=== PATIENT | female | born 2000 | race Caucasian/White ===

== ENCOUNTER 2024-06-28 22:20 | Emergency (ER) | payer BC ==
--- OUTSIDE RECORDS SUMMARY | 2024-06-28 22:23 | XMS REPORT | Continuity of Care Document ---
Author Name Unknown Address [address] [facility] [place]. [address] [place] [address] [facility] thconnect Address [address] [facility] [place] [place] [address] Care Team Providers Care Fisher Troll Line Name Role Phone Unavailable Unavailable Unavailable Encounters Start Date/Time End Date/Time Encounter Type Admission Type Attending Clinicians Care Facility Care Department Encounter ID Source 2023-12-21 15:29:38 2023-12-21 15:29:38 Outpatient [facility] [id number] Domingo Garcia Results Test Description Test Time Test Comments Results Result Co mments Source CULTURE, URINE 2023-12-23 10:27:05 SPECIMEN NUMBER: [id number] CULTURE, URINE SPECIMEN NUMBER: [id number] SPECIMEN COMMENT: URINE SOURCE: URINE REPORT STATUS: FINAL FINAL REPORT: 12/23/2023 >100,000 CFU/ML UROGENITAL SVETLANA PRESENT NO COMMON PATHOGENS
[2024-06-28 23:31] LABS: SARS-CoV-2 Antigen CONTROL BLUE LINE VIS/BG OK; SARS-CoV-2 Antigen Rapid Res Negative (Negative)
--- NOTE | 2024-06-28 23:37 | ER ---
Nurse's Notes [facility] Name: Echo Ratliff Age: 24 yrs Sex: Female : 2000 Arrival Date: 06/28/2024 Time: 22:20 Bed 11 Private MD: Diagnosis: Acute upper respiratory infection, unspecified Presentation: 06/28 22:44 Chief complaint: Patient states: hurts to breath, nose clogged, congestion, cough, and vc1 fever. Coronavirus screen: Client denies travel out of the [place] in the last 14 days. congestion, cough unrelated to allergies, diarrhea, nausea, runny nose, shortness of breath, sore throat, Client presents with at least one sign or symptom that may indicate coronavirus-19. Ebola Screen: Patient negative for fever greater than or equal to 101.5 degrees Fahrenheit, and additional compatible Ebola Virus Disease symptoms Patient denies exposure to infectious person. Patient denies travel to an Ebola-affected area in the 21 days before illness onset. No symptoms or risks identified at this time. Initial Sepsis Screen: Does the patient meet any 2 criteria? No. Patient's initial sepsis screen is negative. Does the patient have a suspected source of infection? No. Patient's initial sepsis screen is negative. Risk Assessment: Do you want to hurt yourself or someone else? Patient reports no desire to harm self or others. Onset of symptoms was June 25, 2024. Activity prior to arrival: None. Mechanism of Injury: No Mechanism of Injury. Transition of care: patient was not received from another setting of care. 22:44 Method Of Arrival: Ambulatory vc1 22:44 Acuity: JANUARY 4 vc1 Triage Assessment: 22:49 General: Appears in no apparent distress. ill, obese, well developed, Behavior is calm, vc1 cooperative, appropriate for age. Pain: Complains of pain in throat. EENT: Nares with drainage noted Reports nasal congestion pain when swallowing. Neuro: Level of Consciousness is awake, alert, obeys commands, Oriented to person, place, time, situation, Appropriate for age. Cardiovascular: No deficits noted. Respiratory: Airway is patent Respiratory effort is even, unlabored, Respiratory pattern is regular, symmetrical, Breath sounds are clear bilaterally. GI: Abdomen is round non-distended. : No deficits noted. No signs and/or symptoms were reported regarding the genitourinary system. Derm: Skin is intact, is healthy with good turgor, Skin is dry, Skin is normal, Skin temperature is warm. Musculoskeletal: No deficits noted. No signs and/or symptoms reported regarding the musculoskeletal system. 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 - Infectious Disease History:: Denies. - Social history:: Smoking status: Reported history of juuling and/or vaping. Screenin:35 [facility] ED Fall Risk Assessment (Adult) History of falling in the last 3 months, vc1 including since admission No falls in past 3 months (0 pts) Confusion or Disorientation No (0 pts) Intoxicated or Sedated No (0 pts) Impaired Gait No (0 pts) Mobility Assist Device Used No (0 pt) Altered Elimination No (0 pt) Score/Fall Risk Level 0 - 2 = Low Risk Oriented to surroundings, Maintained a safe environment, Educated pt \T\ family on fall prevention, incl call for assistance when getting out of bed. Abuse screen: Denies threats or abuse. Nutritional screening: No deficits noted. Tuberculosis screening: No symptoms or risk factors identified. Assessment: 06/29 00:01 Reassessment: Patient appears in no apparent distress at this time. No changes from vc1 previously documented assessment. Patient and/or family updated on plan of care and expected duration. Pain level reassessed. Patient is alert, oriented x 3, equal unlabored respirations, skin warm/dry/pink. Cardiovascular: Heart tones S1 S2. Cardiovascular: Reports nausea, shortness of breath. Cardiovascular: Capillary refill < 3 seconds Patient's skin is warm and dry. Respiratory: Reports shortness of breath cough that is. Respiratory: Breath sounds are clear bilaterally. Respiratory: Airway is patent Respiratory effort is even, unlabored, Respiratory pattern is regular, symmetrical. Vital Signs: 06/28 22:50 BP 133 / 85; Pulse 92; Resp 20; Temp 97.5; Pulse Ox 96% ; Weight 184.16 kg; Height 5 vc1 ft. 11 in. ; 06/29 00:01 BP 132 / 84; Pulse 90; Resp 18; Pulse Ox 97% ; vc1 06/28 22:50 Body Mass Index 56.62 (184.16 kg, 180.34 cm) vc1 ED Course: 06/28 22:21 Patient arrived in ED. jj6 22:22 Jazlyn Lozano FNP-C is [facility]. kb 22:22 Parvez Rios MD is Attending Physician. kb 22:47 Triage completed. vc1 22:49 Arm band placed on left wrist. vc1 22:57 Flu Sent. vc1 22:57 Strep Sent. vc1 22:57 SARS-COV-2 Antigen Rapid Sent. vc1 23:35 Patient has correct armband on for positive identification. Bed in low position. vc1 23:54 No provider procedures requiring assistance completed. Patient did not have IV access vc1 during this emergency room visit. 06/29 00:01 Provided Education on: treat the symptoms. vc1 Administered Medications: No medications were administered Medication: 06/28 23:35 VIS not applicable for this client. vc1 Outcome: 23:37 Discharge ordered by . kb 23:54 Discharged to home ambulatory, with significant other, vc1 23:54 Condition: good 23:54 Discharge instructions given to patient, Instructed on discharge instructions, follow up and referral plans. Demonstrated understanding of instructions, follow-up care, 06/29 00:03 Patient left the ED. vc1 Signatures: Jazlyn Lozano FNP-C FNP-Ckb Jeffries, Jennifer jj6 Jeannie Murry, RN RN vc1
--- NOTE | 2024-06-28 23:37 | EDPHYS ---
Physician Documentation [facility] Name: Echo Ratliff Age: 24 yrs Sex: Female : 2000 Arrival Date: 06/28/2024 Time: 22:20 Bed 11 Private MD: ED Physician Parvez Rios HPI: 06/28 23:34 This 24 yrs old Female presents to ER via Ambulatory with complaints of Cough, kb Congestion, Shortness Of Breath. 23:34 Pt is a 24 year old female who presents for cough, congestion and fever that started 3 kb days ago. Reports nausea and diarrhea yesterday, but none today. Denies vomiting. 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 - Infectious Disease History:: Denies. - Social history:: Smoking status: Reported history of juuling and/or vaping. ROS: 23:34 Constitutional: As per HPI kb Exam: 23:34 Constitutional: This is a well developed, well nourished patient who is awake, alert, kb and in no acute distress. Head/Face: Normocephalic, atraumatic. ENT: Moist Mucous membranes Cardiovascular: Regular rate Respiratory: Respirations even and unlabored. No increased work of breathing. Talking in full sentences Abdomen/GI: Soft, non-tender. No distention Skin: Warm, dry with normal turgor. Normal color. MS/ Extremity: Pulses equal, no cyanosis. Neurovascular intact. Full, normal range of motion. Neuro: Awake and alert, GCS 15, oriented to person, place, time, and situation. Moves all extremities. Normal gait. Vital Signs: 22:50 BP 133 / 85; Pulse 92; Resp 20; Temp 97.5; Pulse Ox 96% ; Weight 184.16 kg; Height 5 vc1 ft. 11 in. ; 06/29 00:01 BP 132 / 84; Pulse 90; Resp 18; Pulse Ox 97% ; vc1 06/28 22:50 Body Mass Index 56.62 (184.16 kg, 180.34 cm) vc1 MDM: 06/28 22:22 Patient medically screened. kb 23:34 Differential Diagnosis: Bronchitis Influenza Upper Respiratory Infection Other covid. kb Data reviewed: vital signs, nurses notes. Historians other than the Patient: Spouse/Significant Other: sig other. Counseling: I had a detailed discussion with the patient and/or guardian regarding the historical points, exam findings, and any diagnostic results supporting the discharge/admit diagnosis, lab results, the need for outpatient follow up, a family practitioner, to return to the emergency department if symptoms worsen or persist or if there are any questions or concerns that arise at home. 23:35 I considered the following discharge prescriptions or medication management in the emergency department I discussed and recommended Over The Counter medications, Antibiotics: At this time antibiotics are not recommended. 06/28 22:48 Order name: SARS-COV-2 Antigen Rapid; Complete Time: 23:32 06/28 22:48 Order name: Strep; Complete Time: 23:32 06/28 22:48 Order name: Flu; Complete Time: 23:32 06/28 23:33 Order name: Throat Culture EDMS Administered Medications: No medications were administered Disposition: 06/29 00:34 Co-signature as Attending Physician, Parvez Rios MD I agree with the assessment sp4 and plan of care. I reviewed the patient's care provided by the Advanced Practice Provider and agree with the diagnosis and treatment plan. Disposition Summary: 06/28/24 23:37 Discharge Ordered Notes: Location: Home Condition: Stable Diagnosis - Acute upper respiratory infection, unspecified kb Followup: kb - With: Emergency Department - When: As needed - Reason: Worsening of condition Followup: kb - With: Private Physician - When: 2 - 3 days - Reason: Recheck today's complaints, Continuance of care, Re-evaluation by your physician Discharge Instructions: - Discharge Summary Sheet kb - Upper Respiratory Infection, Adult, [id number] kb - Viral Respiratory Infection, Ayrz-Vl-[id number] kb Forms: - Medication Reconciliation Form kb - Antibiotic Education kb - Prescription Opioid Use kb - Patient Portal Instructions kb - Leadership Thank You Letter kb Signatures: Dispatcher [employer] EDJazlyn Esqueda FNP-C FNP-Ckb Calcote, Jeannie, RN RN vc1 Parvez Rios MD MD sp4 Corrections: (The following items were deleted from the chart) 06/28 22:48 22:48 SARS-COV-2 Antigen Rapid+I.LAB.BRZ ordered. EDMS EDMS 22:48 22:48 Group A Streptococcus Rapid Sc+BA.LAB.BRZ ordered. EDMS EDMS 22:48 22:48 Influenza Screen (A \T\ B)+BA.LAB.BRZ ordered. EDMS EDMS
[2024-06-29 00:28] VITALS: TEMP 97.5
[2024-06-29 00:29] VITALS: BP 132/84; O2SAT 97
== END 2024-06-29 00:03 | disposition home or self-care (01) ==
LOC: ER 22:20
DX: J06.9 Acute upper respiratory infection, unspecified (principal); Z11.52 Encounter for screening for COVID-19; I10 Essential (primary) hypertension
CPT/HCPCS: 36415; 87070; 87081; 87804; 87811; 99283

== ENCOUNTER 2024-09-27 21:35 | Emergency (ER) | payer BC ==
--- OUTSIDE RECORDS SUMMARY | 2024-09-27 21:38 | XMS REPORT | Continuity of Care Document ---
Author Name Unknown Address [address] [facility] [address] [place] [id number] [facility] thconnect Address [address] [facility] [address] [place] [address] Care Team Providers Care Finish Saw Operator Name Role Phone Unavailable Unavailable Unavailable Encounters Start Date/Time End Date/Time Encounter Type Admission Type Attending Clinicians Care Facility Care Department Encounter ID Source 2023-12-21 15:29:38 2023-12-21 15:29:38 Outpatient [facility] [id number] Domingo Garcia Results Test Description Test Time Test Comments Results Result Co mments Source CULTURE, URINE 2023-12-23 10:27:05 SPECIMEN NUMBER: [id number] CULTURE, URINE SPECIMEN NUMBER: [id number] SPECIMEN COMMENT: URINE SOURCE: URINE REPORT STATUS: FINAL FINAL REPORT: 12/23/2023 >100,000 CFU/ML UROGENITAL SVETLANA PRESENT NO COMMON PATHOGENS
[2024-09-27] MEDS ORDERED: ONDANSETRON 4 MG (ODT) TAB ONE (22:02)
[2024-09-27 22:43] LABS: Specific Gravity 1.025 (1.005-1.030)
[2024-09-27 22:44] LABS: Specific Gravity 1.025 (1.005-1.030); Urine Bacteria None Seen /HPF (<20); Urine Bilirubin NEGATIVE (Negative); Urine Blood Negative (Negative); Urine Clarity Turbid (Clear); Urine Color Light-Yellow (Yellow); Urine Crystals Unidentified Few /HPF (None Seen); Urine Culture Reflex Order NOT NEEDED; Urine Glucose NEGATIVE (Negative); Urine Ketones NEGATIVE (Negative); Urine Micro Reflex YN NO BILL MICROSCOPIC; Urine Mucus Slight /HPF (None Seen); Urine Nitrite NEGATIVE (Negative); Urine Protein TRACE (Negative); Urine RBC <5 /HPF (None Seen); Urine Urobilinogen Normal (Normal); Urine WBC <5 /HPF (<5); Urine WBC Clump Rare /HPF (None Seen); Urine Yeast (Budding) Trace /HPF (None Seen); Urine pH 5.5 (5.0-7.0)
--- NOTE | 2024-09-27 22:53 | EDPHYS ---
Physician Documentation [facility] Name: Echo Ratliff Age: 24 yrs Sex: Female : 2000 Arrival Date: 09/27/2024 Time: 21:35 Bed 17 Private MD: ED Physician Chivo Jacobs HPI: 09/27 21:57 This 24 yrs old Female presents to ER via Ambulatory with complaints of Urinary sb4 Problem, Nausea. 21:57 UTI symptoms x 3 days with associated lower abdominal cramping, fever, n/v. no flank sb4 pain. reports history of UTIs. 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 - Infectious Disease History:: Denies. - Social history:: Smoking status: Reported history of juuling and/or vaping. ROS: 21:58 Constitutional: Positive for fever, sb4 21:58 Abdomen/GI: Positive for nausea and vomiting, abdominal cramps, 21:58 : Positive for burning with urination, 21:58 All other systems are negative, 23:02 Back: Negative for injury and pain, sb4 Exam: 21:58 Head/Face: Normocephalic, atraumatic. Eyes: Extra-ocular motions intact. Periorbital sb4 areas with no swelling, redness, or edema. ENT: Mucous membranes moist. Respiratory: No increased work of breathing, no retractions or nasal flaring. Back: No spinal tenderness. No costovertebral tenderness. Full range of motion. Skin: Warm, dry with normal turgor. Normal color with no rashes, no lesions, and no evidence of cellulitis. 21:58 Constitutional: The patient appears in no acute distress, alert, awake, obese, Vital Signs: 21:47 BP 164 / 83; Pulse 84; Resp 16; Temp 97.1; Pulse Ox 99% on R/A; Weight 182.8 kg; Height iw 5 ft. 11 in. ; Pain 6/10; 22:30 BP 129 / 72; Pulse 97; Resp 17; Temp 98(O); Pulse Ox 99% on R/A; rg5 21:47 Body Mass Index 56.21 (182.80 kg, 180.34 cm) iw 21:47 Pain Scale: Adult iw Jovita Coma Score: 22:05 Eye Response: spontaneous(4). Motor Response: obeys commands(6). Verbal Response: rg5 oriented(5). Total: 15. MDM: 21:50 Medical Screening Exam initiated sb4 22:01 Differential diagnosis: UTI, , ovarian cyst. sb4 22:51 Data reviewed: vital signs, nurses notes, lab test result(s), and as a result, I will sb4 discharge patient. Counseling: I had a detailed discussion with the patient and/or guardian regarding the historical points, exam findings, and any diagnostic results supporting the discharge/admit diagnosis, lab results, to return to the emergency department if symptoms worsen or persist or if there are any questions or concerns that arise at home. 09/27 21:49 Order name: Test, Urine; Complete Time: 22:48 sb4 09/27 21:49 Order name: UAM; Complete Time: 22:48 sb4 09/27 21:56 Order name: Urine Culture sb4 Administered Medications: 22:00 Drug: Ondansetron PO 4 mg PO once Route: PO; rg5 22:44 Follow up: Response: No adverse reaction rg5 22:55 Drug: Fluconazole PO 100 mg PO once Route: PO; rg5 23:00 Follow up: Response: No adverse reaction rg5 Disposition: 23:31 Co-signature as Attending Physician, Chivo Jacobs MD I reviewed the patient's care rt provided by the Advanced Practice Provider and agree with the diagnosis and treatment plan. Disposition Summary: 09/27/24 22:52 Discharge Ordered Notes: Location: Home sb4 Problem: new sb4 Symptoms: are unchanged sb4 Condition: Stable sb4 Diagnosis - Other urogenital candidiasis sb4 Followup: sb4 - With: Emergency Department - When: As needed - Reason: Trouble breathing, Worsening of condition Discharge Instructions: - Discharge Summary Sheet sb4 - Vaginal Yeast Infection, Adult sb4 Forms: - Patient Portal Instructions sb4 - Leadership Thank You Letter sb4 Prescriptions: - Fluconazole 150 mg Oral tablet - take 1 tablet ORAL route once daily for 1 dose take 72 hours after first dose; sb4 1 tablet; Refills: 0, Product Selection Permitted - ondansetron 8 mg Oral Tablet,disintegrating - take 1 tablet ORAL route every 8 hours; 10 tablet; Refills: 0, Product sb4 Selection Permitted Signatures: Dispatcher [employer] Kym Alatorre, DAYA RN Tianna Jose PA-C PAOdilon sb4 Chivo Jacobs MD MD rt Jarrell Gonzalez RN RN rg5
--- NOTE | 2024-09-27 22:53 | ER ---
Nurse's Notes [facility] Name: Echo Ratliff Age: 24 yrs Sex: Female : 2000 Arrival Date: 09/27/2024 Time: 21:35 Bed 17 Private MD: Diagnosis: Other urogenital candidiasis Presentation: 09/27 21:47 Chief complaint: Patient states: lower abd cramping, fever, n/v, feels like a UTI, iw started 3 days ago. Coronavirus screen: At this time, the client does not indicate any symptoms associated with coronavirus-19. Ebola Screen: No symptoms or risks identified at this time. Initial Sepsis Screen: Does the patient meet any 2 criteria? No. Patient's initial sepsis screen is negative. Does the patient have a suspected source of infection? No. Patient's initial sepsis screen is negative. Risk Assessment: Do you want to hurt yourself or someone else? Patient reports no desire to harm self or others. Onset of symptoms was September 24, 2024. 21:47 Method Of Arrival: Ambulatory iw 21:47 Acuity: JANUARY 3 iw Triage Assessment: 22:30 General: Behavior is calm, cooperative. 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 - Infectious Disease History:: Denies. - Social history:: Smoking status: Reported history of juuling and/or vaping. Screenin:05 [facility] ED Fall Risk Assessment (Adult) History of falling in the last 3 months, rg5 including since admission No falls in past 3 months (0 pts) Confusion or Disorientation No (0 pts) Intoxicated or Sedated No (0 pts) Impaired Gait No (0 pts) Mobility Assist Device Used No (0 pt) Altered Elimination No (0 pt) Score/Fall Risk Level 0 - 2 = Low Risk Oriented to surroundings, Maintained a safe environment, Hourly rounding (assess needs \T\ fall precautionary measures) done. Abuse screen: Denies threats or abuse. Nutritional screening: No deficits noted. Tuberculosis screening: No symptoms or risk factors identified. Assessment: 22:05 General: Appears in no apparent distress. comfortable. Pain: Complains of pain in rg5 anterior aspect of right lateral abdomen Pain currently is 5 out of 10 on a pain scale. Quality of pain is described as dull. Neuro: Level of Consciousness is awake, alert, obeys commands, Oriented to person, place, time. Cardiovascular: Denies chest pain, Heart tones S1 S2 Rhythm is regular. Respiratory: Airway is patent Trachea midline Respiratory effort is even, unlabored, Respiratory pattern is regular, symmetrical. GI: Abdomen is round obese, Bowel sounds present X 4 quads. Abd is soft and non tender. : Reports burning with urination. EENT: No deficits noted. Derm: Skin is intact, Skin is dry, Skin is normal, Skin temperature is warm. Musculoskeletal: Circulation, motion, and sensation intact. Range of motion: intact in all extremities. 22:53 Reassessment: No changes from previously documented assessment. Patient and/or family rg5 updated on plan of care and expected duration. Pain level reassessed. Vital Signs: 21:47 BP 164 / 83; Pulse 84; Resp 16; Temp 97.1; Pulse Ox 99% on R/A; Weight 182.8 kg; Height iw 5 ft. 11 in. ; Pain 6/10; 22:30 BP 129 / 72; Pulse 97; Resp 17; Temp 98(O); Pulse Ox 99% on R/A; rg5 21:47 Body Mass Index 56.21 (182.80 kg, 180.34 cm) iw 21:47 Pain Scale: Adult iw Jovita Coma Score: 22:05 Eye Response: spontaneous(4). Motor Response: obeys commands(6). Verbal Response: rg5 oriented(5). Total: 15. ED Course: 21:39 Patient arrived in ED. ra3 21:42 Tianna Jenkins PA-C is PHCP. sb4 21:42 Chivo Jacobs MD is Attending Physician. sb4 21:48 Triage completed. iw 21:49 Arm band placed on. iw 21:54 Jarrell Gonzalez, DAYA is Primary Nurse. rg5 22:05 Patient has correct armband on for positive identification. Call light in reach. Side rg5 rails up X 1. 22:05 No provider procedures requiring assistance completed. rg5 22:53 Provided Education on: post er care. rg5 22:53 Patient did not have IV access during this emergency room visit. rg5 Administered Medications: 22:00 Drug: Ondansetron PO 4 mg PO once Route: PO; rg5 22:44 Follow up: Response: No adverse reaction rg5 22:55 Drug: Fluconazole PO 100 mg PO once Route: PO; rg5 23:00 Follow up: Response: No adverse reaction rg5 Medication: 22:05 VIS not applicable for this client. rg5 Outcome: 22:52 Discharge ordered by . sb4 23:01 Discharged to home ambulatory, rg5 23:01 Condition: stable 23:01 Discharge instructions given to patient, Instructed on discharge instructions, follow up and referral plans. Demonstrated understanding of instructions, follow-up care, medications, Prescriptions given X 2, 23:02 Patient left the ED. rg5 Signatures: Kym Burton, RN RN Tianna Jose, PA-C PA-C sb4 Cara Gasca ra3 Jarrell Gonzalez, RN RN rg5
[2024-09-27] MEDS ORDERED: FLUCONAZOLE 100 MG TAB ONE (22:56)
[2024-09-27 23:35] VITALS: O2SAT 99
[2024-09-27 23:39] VITALS: BP 129/72; TEMP 98
== END 2024-09-27 23:02 | disposition home or self-care (01) ==
LOC: ER 21:35
DX: B37.49 Other urogenital candidiasis (principal)
CPT/HCPCS: 87088; 81001; 87086; 81025; 99283; Q0162

== ENCOUNTER 2024-10-31 20:01 | Emergency (ER) | payer BC, SELFPAY ==
--- OUTSIDE RECORDS SUMMARY | 2024-10-31 20:04 | XMS REPORT | Continuity of Care Document ---
Author Name Unknown Address [address] [facility] [place]. 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 Role Phone Unavailable Unavailable Unavailable Encounters Start Date/Time End Date/Time Encounter Type Admission Type Attending Clinicians Care Facility Care Department Encounter ID Source 2023-12-21 15:29:38 2023-12-21 15:29:38 Outpatient [facility] [id number] Domingo Garcia Results Test Description Test Time Test Comments Results Result Co mments Source CULTURE, URINE 2023-12-23 10:27:05 SPECIMEN NUMBER: [id number] CULTURE, URINE SPECIMEN NUMBER: [id number] SPECIMEN COMMENT: URINE SOURCE: URINE REPORT STATUS: FINAL FINAL REPORT: 12/23/2023 >100,000 CFU/ML UROGENITAL SVETLANA PRESENT NO COMMON PATHOGENS
[2024-10-31] MEDS ORDERED: AMLODIPINE 10 MG TAB ONE (20:46)
[2024-10-31] MEDS ORDERED: ONDANSETRON 4 MG (ODT) TAB ONE (20:47)
[2024-10-31 21:04] LABS: SARS-CoV-2 Antigen CONTROL BLUE LINE VIS/BG OK; SARS-CoV-2 Antigen Rapid Res Negative (Negative)
--- NOTE | 2024-10-31 21:44 | EDPHYS ---
Physician Documentation [facility] Name: Echo Ratliff Age: 24 yrs Sex: Female : 2000 Arrival Date: 10/31/2024 Time: 20:01 Bed DX3 Private MD: ED Physician Loren Caballero HPI: 10/31 20:43 This 24 yrs old Female presents to ER via Ambulatory with complaints of sd2 Nausea/Vomiting, Dizziness, Weakness. 20:43 24 yo F presents with CC of flu-like symptoms for the past 24 hours. 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 She reports headache, body aches, nausea with intermittent vomiting and lightheadedness. However, reports she has POTS and the lightheadedness is not new for her especially as she has been off her amlodipine and thyroid medication for the past week due to insurance issues. . 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 - Infectious Disease History:: Denies. - Social history:: Smoking status: Reported history of juuling and/or vaping. Patient/guardian denies using alcohol, street drugs. ROS: 20:43 Constitutional: Negative for fever, chills, and weight loss, Eyes: Negative for injury, sd2 pain, redness, and discharge, Cardiovascular: Negative for chest pain, palpitations, and edema, Respiratory: Negative for shortness of breath, cough, wheezing. 20:43 MS/Extremity: Negative for injury and deformity, Skin: Negative for injury, rash, and discoloration, 20:43 Abdomen/GI: Positive for nausea, vomiting, Negative for abdominal pain, diarrhea, 20:43 Neuro: Positive for headache, Negative for numbness, tingling, Exam: 20:43 Constitutional: This is a well developed, well nourished patient who is awake, alert, sd2 and in no acute distress. Head/Face: Normocephalic, atraumatic. Eyes: EOMI, normal conjunctiva bilaterally Chest/axilla: Normal chest wall appearance and motion. Nontender with no deformity. Cardiovascular: Regular rate and rhythm with a normal S1 and S2. No gallops, murmurs, or rubs. 2+ distal pulses. Respiratory: Lungs have equal breath sounds bilaterally, clear to auscultation and percussion. No rales, rhonchi or wheezes noted. No increased work of breathing, no retractions or nasal flaring. Abdomen/GI: Soft, non-tender, with normal bowel sounds. No guarding or rebound. No evidence of tenderness throughout. Skin: Warm, dry with normal turgor. Normal color with no rashes, no lesions, and no evidence of cellulitis. MS/ Extremity: Pulses equal, no cyanosis. Neurovascular intact. Full, normal range of motion. Neuro: Awake and alert, GCS 15, oriented to person, place, time, and situation. Cranial nerves II-XII grossly intact. Motor strength 5/5 in all extremities. Sensory grossly intact. Normal gait. Psych: Awake, alert, with orientation to person, place and time. Behavior, mood, and affect are within normal limits. 20:58 ECG was reviewed by the Attending Physician. NSR, rate 85, no STEMI criteria sd2 Vital Signs: 20:29 BP 172 / 73; Pulse 87; Resp 17 S; Temp 97.4; Pulse Ox 99% on R/A; Weight 184.61 kg (R); lg3 Height 5 ft. 11 in. (R); 22:00 BP 135 / 72; Pulse 82; Resp 16; Temp 98.6; Pulse Ox 100% ; me1 20:29 Body Mass Index 56.76 (184.61 kg, 180.34 cm) lg3 MDM: 20:34 Medical Screening Exam initiated sd2 20:43 Differential diagnosis: viral URI, flu, PNA, ACS, dehydration among others. Data sd2 reviewed: vital signs, nurses notes, lab test result(s), EKG. I considered the following discharge prescriptions or medication management in the emergency department Medications were administered in the Emergency Department. See MAR. Care significantly affected by the following chronic conditions: Hypertension, POTS, hypothyroidism. 21:42 Counseling: I had a detailed discussion with the patient and/or guardian regarding the sd2 historical points, exam findings, and any diagnostic results supporting the discharge/admit diagnosis, lab results, the need for outpatient follow up, to return to the emergency department if symptoms worsen or persist or if there are any questions or concerns that arise at home. ED course: Swabs negative. EKG with no ischemic changes. Pt's symptoms consistent with viral illness. With recent exposure to flu, advised continued supportive care and risk for contagiousness. Given work note. Pt comfortable with plan for dc and outpatient follow up. Refill given for patient's amlodipine and thyroid medication. Verbalizes understanding of dc plan and strict return precautions. . 10/31 20:32 Order name: Strep; Complete Time: 21:16 kmf 10/31 20:32 Order name: Flu; Complete Time: 21:41 kmf 10/31 20:32 Order name: SARS RAPID; Complete Time: 21:16 kmf 10/31 21:13 Order name: Throat Culture EDMS 10/31 20:39 Order name: EKG - Nurse/Tech; Complete Time: 20:48 sd2 Administered Medications: 20:52 Drug: Ondansetron Oral Disintegrating Tablet Oral Disintegrating Tablet 4 mg PO once lg3 Route: PO; 22:11 Follow up: Response: No adverse reaction; Nausea is decreased me1 20:52 Drug: amLODIPine PO 10 mg PO once Route: PO; lg3 22:11 Follow up: Response: No adverse reaction; Blood pressure is lowered me1 Disposition Summary: 10/31/24 21:44 Discharge Ordered Notes: Location: Home sd2 Problem: new sd2 Symptoms: have improved sd2 Condition: Stable sd2 Diagnosis - Flulike illness sd2 - Exposure to influenza sd2 - Lightheadedness sd2 - Medication non-compliance sd2 - Need for medication refill sd2 Followup: sd2 - With: Private Physician - When: 2 - 3 days - Reason: Recheck today's complaints, Continuance of care, Re-evaluation by your physician Discharge Instructions: - Discharge Summary Sheet sd2 - Influenza, Adult sd2 - Form - Excuse from Work, School, or Physical Activity sd2 Forms: - Medication Reconciliation Form sd2 - Antibiotic Education sd2 - Prescription Opioid Use sd2 - Patient Portal Instructions sd2 - Leadership Thank You Letter sd2 Prescriptions: - 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
--- NOTE | 2024-10-31 21:44 | ER ---
Nurse's Notes [facility] Name: Echo Ratliff Age: 24 yrs Sex: Female : 2000 Arrival Date: 10/31/2024 Time: 20:01 Bed DX3 Private MD: Diagnosis: Flulike illness;Exposure to influenza;Lightheadedness;Medication non-compliance;Need for medication refill Presentation: 10/31 20:29 Chief complaint: Patient states: body aches, nausea, lightheaded, weakness, cold chills lg3 X24 hr. recent contact with Flu + person. Coronavirus screen: Client denies travel out of the [place] in the last 14 days. Client presents with at least one sign or symptom that may indicate coronavirus-19. Standard/surgical mask placed on the client. Ebola Screen: No symptoms or risks identified at this time. Initial Sepsis Screen: Does the patient meet any 2 criteria? No. Patient's initial sepsis screen is negative. Does the patient have a suspected source of infection? No. Patient's initial sepsis screen is negative. Risk Assessment: Do you want to hurt yourself or someone else? Patient reports no desire to harm self or others. Onset of symptoms was October 30, 2024. 20:29 Method Of Arrival: Ambulatory lg3 20:29 Acuity: JANUARY 4 lg3 Triage Assessment: 20:32 General: Appears in no apparent distress. comfortable, Behavior is calm, cooperative. lg3 Pain: Complains of pain in generalized body aches. EENT: No deficits noted. No signs and/or symptoms were reported regarding the EENT system. Neuro: No deficits noted. Baum Agitation-Sedation Scale (RASS): 0 - Alert and Calm Level of Consciousness is awake, alert, obeys commands, Oriented to person, place, time, situation, Reports dizziness, weakness. Cardiovascular: No deficits noted. Denies chest pain, shortness of breath, Capillary refill < 3 seconds Clubbing of nail beds is absent JVD is absent Patient's skin is warm and dry. Respiratory: No deficits noted. Airway is patent Respiratory effort is even, unlabored, Respiratory pattern is regular, symmetrical, Breath sounds are clear bilaterally. GI: No deficits noted. Abdomen is round non-distended, obese, Bowel sounds present X 4 quads. Abd is soft and non tender X 4 quads. Reports nausea. : No signs and/or symptoms were reported regarding the genitourinary system. Derm: No deficits noted. No signs and/or symptoms reported regarding the dermatologic system. Skin is intact, is healthy with good turgor, Skin is dry, Skin is normal, Skin temperature is warm. Musculoskeletal: No deficits noted. Circulation, motion, and sensation intact. Range of motion: intact in all extremities. 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 - Infectious Disease History:: Denies. - Social history:: Smoking status: Reported history of juuling and/or vaping. Patient/guardian denies using alcohol, street drugs. Screenin:36 [facility] ED Fall Risk Assessment (Adult) History of falling in the last 3 months, lg3 including since admission No falls in past 3 months (0 pts) Confusion or Disorientation No (0 pts) Intoxicated or Sedated No (0 pts) Impaired Gait No (0 pts) Mobility Assist Device Used No (0 pt) Altered Elimination No (0 pt) Score/Fall Risk Level 0 - 2 = Low Risk Oriented to surroundings, Maintained a safe environment, Educated pt \T\ family on fall prevention, incl call for assistance when getting out of bed, Assessed \T\ reinforced patient's understanding of fall precautions. Abuse screen: Denies threats or abuse. Denies injuries from another. Nutritional screening: No deficits noted. Tuberculosis screening: No symptoms or risk factors identified. Assessment: 20:36 General: see triage assessment. GI: No deficits noted. Abdomen is round non-distended, lg3 obese, Reports nausea. 22:08 General: Appears comfortable, obese, well groomed, well developed, Behavior is calm, me1 cooperative, appropriate for age, Reports body aches, nausea, lightheaded, weakness, cold chills X24 hr. recent contact with Flu + person. Pain: Complains of pain in head Pain does not radiate. Pain currently is 3 out of 10 on a pain scale. Quality of pain is described as aching, Pain began 1 day ago. Is continuous. Neuro: Level of Consciousness is awake, alert, obeys commands, Oriented to person, place, time, situation, Appropriate for age. Neuro: Reports dizziness, headache. Cardiovascular: Patient's skin is warm and dry. Respiratory: Airway is patent Trachea midline Respiratory effort is even, unlabored, Respiratory pattern is regular, symmetrical. GI: Reports nausea. : No signs and/or symptoms were reported regarding the genitourinary system. EENT: No signs and/or symptoms were reported regarding the EENT system. Derm: Skin is intact, is healthy with good turgor, Skin is pink, warm \T\ dry. Musculoskeletal: No signs and/or symptoms reported regarding the musculoskeletal system. Vital Signs: 20:29 BP 172 / 73; Pulse 87; Resp 17 S; Temp 97.4; Pulse Ox 99% on R/A; Weight 184.61 kg (R); lg3 Height 5 ft. 11 in. (R); 22:00 BP 135 / 72; Pulse 82; Resp 16; Temp 98.6; Pulse Ox 100% ; me1 20:29 Body Mass Index 56.76 (184.61 kg, 180.34 cm) lg3 ED Course: 20:04 Patient arrived in ED. [email or web address] 20:30 Loren Caballero MD is Attending Physician. sd2 20:32 Triage completed. lg3 20:32 Arm band placed on right wrist. lg3 20:36 Patient taken to lobby, ambulatory, steady gait. lg3 20:36 Patient has correct armband on for positive identification. lg3 20:36 COVID swab sent to lab. Flu and/or RSV swab sent to lab. Strep swab sent to lab. lg3 Patient maintains SpO2 saturation greater than 95% on room air. 20:38 SARS RAPID Sent. lg3 20:38 Flu Sent. lg3 20:38 Strep Sent. lg3 20:42 EKG done, by ED staff, reviewed by oLren Caballero MD. lg3 22:08 Provided Education on: POC. Verbalized understanding.. me1 22:08 No provider procedures requiring assistance completed. Patient did not have IV access me1 during this emergency room visit. 22:15 Eddleman, Franny, RN is Primary Nurse. me1 Administered Medications: 20:52 Drug: Ondansetron Oral Disintegrating Tablet Oral Disintegrating Tablet 4 mg PO once lg3 Route: PO; 22:11 Follow up: Response: No adverse reaction; Nausea is decreased me1 20:52 Drug: amLODIPine PO 10 mg PO once Route: PO; lg3 22:11 Follow up: Response: No adverse reaction; Blood pressure is lowered me1 Medication: 22:08 VIS not applicable for this client. me1 Outcome: 21:44 Discharge ordered by . sd2 22:15 Discharged to home ambulatory, me1 22:15 Condition: stable 22:15 Discharge instructions given to patient, Instructed on discharge instructions, follow up and referral plans. medication usage, Demonstrated understanding of instructions, follow-up care, medications, Prescriptions given X 3, 22:16 Patient left the ED. me1 Signatures: Catrachita Isaac RN RN lg3 Radha [id number] Loren Caballero MD MD sd2 Franny St, RN RN me1 Corrections: (The following items were deleted from the chart) 22:08 20:29 Chief complaint: Patient states: body aches, nausea, lightheaded, weakness, cold me1 chills X24 hr. recent contact with Flu + person lg3
[2024-10-31 22:41] VITALS: BP 135/72; TEMP 98.6; O2SAT 100
--- NOTE | 2024-11-03 11:17 | EKG ---
Test Date: 2024-10-31 Test Time: 20:46:55 Marble Machine Operator: AF MEASUREMENT RESULTS: Intervals: Rate: 85 MA: 162 QRSD: 78 QT: 380 QTc: 452 Hollister: P: 38 MA: 162 QRS: 44 T: 47 INTERPRETIVE STATEMENTS: Normal sinus rhythm Normal ECG No previous ECG available for comparison Electronically Signed On 11-03-24 11:12:32 RN STAFF by Satya Thomson
== END 2024-10-31 22:16 | disposition home or self-care (01) ==
LOC: ER 20:01
DX: J11.1 Influenza due to unidentified influenza virus with other respiratory manifestations (principal); R42 Dizziness and giddiness; Z91.148 Patient's other noncompliance with medication regimen for other reason; Z76.0 Encounter for issue of repeat prescription; Z20.89 Contact with and (suspected) exposure to other communicable diseases
CPT/HCPCS: 36415; 87070; 87081; 87804; 87811; 93005; 99284; Q0162

== ENCOUNTER 2024-11-29 18:16 | Emergency (ER) | payer SELFPAY ==
--- OUTSIDE RECORDS SUMMARY | 2024-11-29 18:19 | XMS REPORT | Continuity of Care Document ---
Author Name Unknown Address [address] [place] [address] [facility] Address 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 Name Role Phone Unavailable Unavailable Unavailable Encounters Start Date/Time End Date/Time Encounter Type Admission Type Attending Clinicians Care Facility Care Department Encounter ID Source 2023-12-21 15:29:38 2023-12-21 15:29:38 Outpatient [facility] [id number] Domingo Garcia Results Test Description Test Time Test Comments Results Result Co mments Source CULTURE, URINE 2023-12-23 10:27:05 SPECIMEN NUMBER: [id number] CULTURE, URINE SPECIMEN NUMBER: [id number] SPECIMEN COMMENT: URINE SOURCE: URINE REPORT STATUS: FINAL FINAL REPORT: 12/23/2023 >100,000 CFU/ML UROGENITAL SVETLANA PRESENT NO COMMON PATHOGENS
[2024-11-29 19:29] LABS: Absolute Basophils 0.1 K/uL (0-0.5); Absolute Eosinophils 0.3 K/uL (0-0.5); Absolute Lymphocytes (CBC) 3.4 K/uL (0.7-4.9); Absolute Monocytes 1.1 K/uL (0.1-1.3); Absolute Neutrophil 9.4 K/uL (1.8-8.0); Basophils % 0.6 % (0-1.3); Eosinophils % 2.3 % (0-4.4); Hematocrit 39.9 % (36.0-45.0); Hemoglobin 12.7 g/dL (12.0-15.0); Lymphocytes % 23.9 % (15.3-44.8); MCH 22.8 pg (27.0-35.0); MCHC 31.9 g/dL (32.0-36.0); MCV 71.6 fL (80-100); MPV 8.2 fL (7.6-11.3); Monocytes % 7.6 % (3.3-12.3); Neutrophils % 65.6 % (41.7-73.7); Platelets 287 thou/uL (152-406); RBC Red Blood Cell Count 5.57 M/uL (3.86-4.86); Red Cell Distribution Width 16.3 % (12.1-15.2)
[2024-11-29 19:29] LABS: Specific Gravity 1.019 (1.005-1.030)
[2024-11-29 19:31] LABS: Specific Gravity 1.019 (1.005-1.030); Sqamous Epithelial <5 /HPF (None Seen); Urine Bacteria None Seen /HPF (<20); Urine Bilirubin NEGATIVE (Negative); Urine Blood 3+ (OVER) (Negative); Urine Clarity Extremely Turbid (Clear); Urine Color Colorless (Yellow); Urine Crystals Unidentified Few /HPF (None Seen); Urine Culture Reflex Order REFLEXED; Urine Glucose NEGATIVE (Negative); Urine Ketones NEGATIVE (Negative); Urine Micro Reflex YN NO BILL MICROSCOPIC; Urine Mucus Slight /HPF (None Seen); Urine Nitrite NEGATIVE (Negative); Urine Protein TRACE (Negative); Urine RBC >50 /HPF (None Seen); Urine Urobilinogen Normal (Normal); Urine Yeast (Budding) Occasional /HPF (None Seen)
--- NOTE | 2024-11-29 19:41 | RAD REPORT ---
Procedure: Chest Single View HISTORY: Chest pain COMPARISON: none FINDINGS: The lungs appear clear of acute infiltrate. No significant pleural effusion noted. The heart is normal size. IMPRESSION: No acute abnormality is displayed.
[2024-11-29] MEDS ORDERED: NA CHLORIDE 0.9% 1,000 ML ONE (19:42)
[2024-11-29 19:48] LABS: ALT/SGPT 36 U/L (13-56); AST/SGOT 36 U/L (15-37); Albumin 3.1 g/dL (3.4-5.0); Albumin/Globulin Ratio 0.6 (1.1-1.8); Alkaline Phosphatase 87 U/L (45-117); Anion Gap 10.8 mEq/L (5.0-15.0); BUN Blood Urea Nitrogen 17 mg/dL (7-18); Bicarbonate 23 mEq/L (21-32); Bilirubin Total 0.2 mg/dL (0.2-1.0); Globulin 4.9 g/dL (2.3-3.5); Glomerular Filtration Rate 112 ml/min (=/>90); Glucose Level 95 mg/dL (74-106); NT PRO-BNP 17 pg/mL (<125); Potassium 3.8 mEq/L (3.5-5.1); Sodium Level 138 mEq/L (136-145); Troponin High Sensitivity 3.5 pg/mL (<58.9)
[2024-11-29 19:49] LABS: Bilirubin Direct < 0.2 mg/dL (0-0.2)
[2024-11-29 20:11] LABS: D-Dimer 0.518 FEUug/mL (0-0.500); PT Prothrombin Time 11.5 SECONDS (9.4-12.5); Protime INR 1.1
[2024-11-29] MEDS ORDERED: dexAMETHasone 10 MG/ML VIAL ONE (20:34)
[2024-11-29] MEDS ORDERED: DIPHENHYDRAMINE 50 MG/ML VIAL ONE (20:35)
[2024-11-29] MEDS ORDERED: KETOROLAC 30 MG/ML INJ ONE (20:35)
[2024-11-29] MEDS ORDERED: METOCLOPRAMIDE 10 MG/2mL INJ ONE (20:35)
--- NOTE | 2024-11-29 21:04 | RAD REPORT ---
EXAM: CT brain without contrast HISTORY: Dizziness COMPARISON: None TECHNIQUE: Multiple contiguous axial images were obtained and a CT of the brain without contrast.. Sagittal and coronal reconstruction performed. Automated exposure control, adjustment of the mA and/or kV according to patient size, and/or iterative reconstruction. Unless otherwise specified, incidental f indings do not require dedicated imaging follow-up FINDINGS: An intracranial bleed is not seen Ventricles are normal caliber No extra-axial fluid collection noted No significant hypodensity within the brain No fluid within the visualized sinuses or mastoids noted. IMPRESSION: No acute intracranial abnormality noted. If the patient continues to have symptoms to suggest an acute intracranial abnormality then MRI of th e brain would be recommended.
--- NOTE | 2024-11-29 21:08 | EDPHYS ---
Physician Documentation [facility] Name: Echo Ratliff Age: 24 yrs Sex: Female : 2000 Arrival Date: 11/29/2024 Time: 18:16 Bed 16 Private MD: ED Physician Chivo Jacobs HPI: 11/29 18:55 This 24 yrs old Female presents to ER via Ambulatory with complaints of Near Syncope, cp Blurred Vision, Headache, Dizziness, Chest Tightness. 18:55 The patient has experienced near-syncope, almost passed out, felt dizzy, felt faint. cp Onset: The symptoms/episode began/occurred today, headache times 4 days. 18:55 Associated signs and symptoms: Pertinent positives: chest tightness, dizziness, cp Pertinent negatives: vomiting, fever, active abdomen pain. Current symptoms: headache, that is moderate, visual disturbance, blurred vision, dizziness and intermittent chest tightness. 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 - Infectious Disease History:: Denies. - Social history:: Smoking status: Patient denies any tobacco usage or history of. ROS: 19:00 Constitutional: Negative for body aches, chills, fever, poor PO intake, cp 19:00 Eyes: Negative for injury, pain, redness, and discharge, cp 19:00 Cardiovascular: Positive for chest tightness, Negative for edema, palpitations, 19:00 Respiratory: Negative for wheezing, 19:00 Abdomen/GI: Negative for vomiting, diarrhea, constipation, active pain, 19:00 Neuro: Positive for dizziness, headache, Negative for altered mental status, speech changes, syncope, weakness, 19:00 All other systems are negative, Exam: 19:05 Constitutional: The patient appears in no acute distress, alert, awake, cp non-diaphoretic, non-toxic, well developed, well nourished, obese, 19:05 Head/Face: Normocephalic, atraumatic. cp 19:05 Eyes: Periorbital structures: appear normal, Conjunctiva: normal, no exudate, no injection, Sclera: no appreciated abnormality, Lids and lashes: appear normal, bilaterally, 19:05 ENT: External ear(s): are unremarkable, Nose: is normal, Mouth: Lips: moist, Oral mucosa: moist, Posterior pharynx: Airway: no evidence of obstruction, patent, 19:05 Chest/axilla: Inspection: normal, 19:05 Cardiovascular: Rate: tachycardic, Rhythm: regular, Edema: is not appreciated, JVD: is not appreciated, 19:05 Respiratory: the patient does not display signs of respiratory distress, Respirations: normal, no use of accessory muscles, no retractions, labored breathing, is not present, Breath sounds: are clear throughout, no decreased breath sounds, no stridor, no wheezing, 19:05 Abdomen/GI: Exam negative for discomfort, distension, guarding, Inspection: obese Palpation: abdomen is soft and non-tender, in all quadrants, 19:05 Back: pain, is absent, ROM is normal, 19:05 Neuro: Orientation: to person, place \T\ time. Mentation: is normal, Cerebellar function: is grossly normal, Motor: moves all fours, strength is normal, Sensation: no obvious gross deficits, 19:40 ECG was reviewed by the Attending Physician. cp Vital Signs: 18:22 BP 147 / 95; Pulse 106; Resp 18; Temp 98.1; Pulse Ox 99% ; ko1 18:50 BP 139 / 112; Pulse 95; Resp 17; Pulse Ox 100% on R/A; db 19:30 BP 131 / 77; Pulse 88; Resp 17; Pulse Ox 99% on R/A; Pain 4/10; rg5 20:30 BP 129 / 85; Pulse 89; Resp 17; Pulse Ox 99% on R/A; rg5 21:15 BP 121 / 83; Pulse 94; Resp 17; Pulse Ox 99% on R/A; Pain 0/10; rg5 19:30 Pain Scale: Adult rg5 21:15 Pain Scale: Adult rg5 MDM: 18:32 Medical Screening Exam initiated cp 20:00 Differential Diagnosis: cardiac arrhythmia, cerebrovascular accident, drug effect, cp , seizure, transient ischemic attack. 21:05 Data reviewed: vital signs, nurses notes, lab test result(s), EKG, radiologic studies, cp CT scan, plain films. :06 I considered the following discharge prescriptions or medication management in the emergency department Medications were administered in the Emergency Department. See MAR. 21:06 Care significantly affected by the following chronic conditions: Hypertension, Obesity. Counseling: I had a detailed discussion with the patient and/or guardian regarding the historical points, exam findings, and any diagnostic results supporting the discharge/admit diagnosis, lab results, radiology results, the need for outpatient follow up, a family practitioner, to return to the emergency department if symptoms worsen or persist or if there are any questions or concerns that arise at home. Response to treatment: the patient's symptoms have mildly improved after treatment, and as a result, I will discharge patient. Refusal of service: The patient/guardian displays adequate decision making capability and despite a detailed discussion of alternatives, benefits, risks, and consequences refuses: CT scan of chest. 11/29 18:50 Order name: Basic Metabolic Panel; Complete Time: 20:23 11/29 20:23 Interpretation: Normal except: CL 108. 11/29 18:50 Order name: CBC with Diff; Complete Time: 20:23 11/29 20:23 Interpretation: Normal except: WBC 14.40; RBC 5.57; MCV 71.6; MCH 22.8; MCHC 31.9; RDW cp 16.3; NEUT A 9.4. 11/29 18:50 Order name: D-Dimer; Complete Time: 20:23 11/29 20:24 Interpretation: Reviewed. 11/29 18:50 Order name: LFT's; Complete Time: 20:23 11/29 18:50 Order name: Magnesium; Complete Time: 20:23 11/29 18:50 Order name: NT PRO-BNP; Complete Time: 20:23 11/29 18:50 Order name: PT-INR; Complete Time: 20:23 11/29 18:50 Order name: Troponin HS; Complete Time: 20:23 11/29 18:50 Order name: Urinalysis W/Microscopic; Complete Time: 20:23 11/29 18:50 Order name: Test, Urine; Complete Time: 20:23 11/29 19:35 Order name: Urine Culture EDNC 11/29 18:50 Order name: XRAY Chest (1 view); Complete Time: 20:23 11/29 20:24 Interpretation: Report review. 11/29 20:26 Order name: CT Head Brain wo Cont; Complete Time: 21:17 11/29 18:50 Order name: EKG; Complete Time: 18:51 11/29 18:50 Order name: Cardiac monitoring; Complete Time: 19:46 11/29 18:50 Order name: EKG - Nurse/Tech; Complete Time: 19:46 11/29 18:50 Order name: IV Saline Lock; Complete Time: 19:23 11/29 18:50 Order name: Labs collected and sent; Complete Time: 19:23 11/29 18:50 Order name: O2 Per Protocol; Complete Time: 19: 11/29 18:50 Order name: O2 Sat Monitoring; Complete Time: 19:23 cp EC:40 Rate is 99 beats/min. Rhythm is regular. [place] interval is normal. QRS interval is normal. cp QT interval is normal. T waves are Inverted in lead aVR. Interpreted by me. Reviewed by me. Administered Medications: 19:44 Drug: NS 0.9% IV 1000 ml IV at 1 bolus Per protocol; to be given as a bolus over 60 rg5 minutes Route: IV; Rate: 1 bolus; Site: left antecubital; 21:15 Follow up: IV Status: Completed infusion; IV Intake: 1000ml rg5 20:43 Drug: metoCLOPramide IVP 10 mg IVP once; over 1 to 2 minutes Route: IVP; Site: left rg5 antecubital; 21:14 Follow up: Response: No adverse reaction; Pain is decreased rg5 20:43 Drug: diphenhydrAMINE IVP 25 mg IVP once Route: IVP; Site: left antecubital; rg5 21:14 Follow up: Response: No adverse reaction; Pain is decreased rg5 20:43 Drug: Dexamethasone IVP 10 mg IVP once Route: IVP; Site: left antecubital; rg5 21:14 Follow up: Response: No adverse reaction; Pain is decreased rg5 20:43 Drug: Ketorolac IVP 15 mg IVP once Route: IVP; Site: left antecubital; rg5 21:14 Follow up: Response: No adverse reaction; Pain is decreased rg5 Disposition Summary: 11/29/24 21:07 Discharge Ordered Notes: Location: Home cp Problem: new cp Symptoms: have improved cp Condition: Stable cp Diagnosis - Headache cp - Dizziness and giddiness cp - Chest pain, unspecified cp - UTI/ Urinary tract infection, site not specified cp - Hypertensive heart disease without heart failure cp Followup: cp - With: Private Physician - When: 2 - 3 days - Reason: Recheck today's complaints Discharge Instructions: - Discharge Summary Sheet cp - Nonspecific Chest Pain, Adult cp - Dizziness cp - General Headache Without Cause cp - Hypertension, Adult cp - Urinary Tract Infection, Adult cp - Form - Excuse from Work, School, or Physical Activity cp - Form - Return To Work hw - Form - Late to Work or School hw Forms: - Medication Reconciliation Form cp - Antibiotic Education cp - Prescription Opioid Use cp - Patient Portal Instructions cp - Leadership Thank You Letter cp - Work release form hw Prescriptions: - Meclizine 25 mg Oral Tablet - take 1 tablet ORAL route every 8 hours As needed; 30 tablet; Refills: 0, cp Product Selection Permitted - Macrobid 100 mg Oral Capsule - take 1 capsule ORAL route every 12 hours for 7 days; 14 capsule; Refills: 0, cp Product Selection Permitted Addendum: 12/02/2024 08:57 Co-signature as Attending Physician, Chivo Jacobs MD I reviewed the patient's care r t provided by the Advanced Practice Provider and agree with the diagnosis and treatment plan. Signatures: Dispatcher [employer] EDMS Hans Monge PA PA cp Smiley Bentley RN RN ko1 Chivo Jacobs MD MD rt Jarrell Gonzalez RN RN rg5 Corrections: (The following items were deleted from the chart) 11/29 18:51 18:51 BASIC METABOLIC PANEL+C.LAB.BRZ ordered. EDMS EDMS 18:51 18:51 CBC+H.LAB.BRZ ordered. EDMS EDMS 18:51 18:51 D-DIMER+COAG.LAB.BRZ ordered. EDMS EDMS 18:51 18:51 HEPATIC FUNCTION+C.LAB.BRZ ordered. EDMS EDMS 18:51 18:51 MAGNESIUM+C.LAB.BRZ ordered. EDMS EDMS 18:51 18:51 PROBNP+C.LAB.BRZ ordered. EDMS EDMS 18:51 18:51 PROTIME (+INR)+COAG.LAB.BRZ ordered. EDMS EDMS 18:51 18:51 Troponin High Sensitivity+C.LAB.BRZ ordered. EDMS EDMS 18:51 18:51 Urinalysis W/Microscopic+U.LAB.BRZ ordered. EDMS EDMS 18:51 18:51 Test, Urine+UC.LAB.BRZ ordered. EDMS EDMS 20:59 20:27 Chest For PE Angio+CT.RAD.BRZ ordered. EDNC EDMS 21:15 20:27 Extrem Venous W Compression Brendan+US.RAD.BRZ ordered. EDMS EDMS 22: 21:05 Data reviewed: vital signs, nurses notes, lab test result(s), EKG, radiologic cp studies, plain films, cp 22: 21:05 Refusal of service: The patient/guardian displays adequate decision making cp capability and despite a detailed discussion of alternatives, benefits, risks, and consequences refuses: to wait for results of CT at this time, reports family emergency, cp
--- NOTE | 2024-11-29 21:08 | ER ---
Nurse's Notes [facility] Name: Echo Ratliff Age: 24 yrs Sex: Female : 2000 Arrival Date: 11/29/2024 Time: 18:16 Bed 16 Private MD: Diagnosis: Headache;Dizziness and giddiness;Chest pain, unspecified;UTI/ Urinary tract infection, site not specified;Hypertensive heart disease without heart failure Presentation: 11/29 18:22 Chief complaint: Patient states: headache x 4 days, progressed into abdominal pain, ko1 back pain, chest tightness, dizzy and vision blurry when chest pain starts. Coronavirus screen: At this time, the client does not indicate any symptoms associated with coronavirus-19. Ebola Screen: No symptoms or risks identified at this time. Initial Sepsis Screen: Does the patient meet any 2 criteria? No. Patient's initial sepsis screen is negative. Does the patient have a suspected source of infection? No. Patient's initial sepsis screen is negative. Risk Assessment: Do you want to hurt yourself or someone else? Patient reports no desire to harm self or others. Onset of symptoms is unknown. 18:22 Method Of Arrival: Ambulatory ko1 18:22 Acuity: JANUARY 3 ko1 Triage Assessment: 18:26 Headache History: Denies prior headaches. General: Appears in no apparent distress. ko1 Behavior is cooperative, appropriate for age, anxious. Pain: Complains of pain in chest. Neuro: Reports dizziness. 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 - Infectious Disease History:: Denies. - Social history:: Smoking status: Patient denies any tobacco usage or history of. Screenin:54 [facility] ED Fall Risk Assessment (Adult) History of falling in the last 3 months, db including since admission No falls in past 3 months (0 pts) Confusion or Disorientation No (0 pts) Intoxicated or Sedated No (0 pts) Impaired Gait No (0 pts) Mobility Assist Device Used No (0 pt) Altered Elimination No (0 pt) Score/Fall Risk Level 0 - 2 = Low Risk Oriented to surroundings, Maintained a safe environment. Abuse screen: Denies threats or abuse. Denies injuries from another. Nutritional screening: No deficits noted. Tuberculosis screening: No symptoms or risk factors identified. Assessment: 18:49 Reassessment: Patient appears in no apparent distress at this time. Patient and/or db family updated on plan of care and expected duration. Pain level reassessed. Patient is alert, oriented x 3, equal unlabored respirations, skin warm/dry/pink. General: Appears in no apparent distress. comfortable, Behavior is calm, cooperative. Neuro: Level of Consciousness is awake, alert, obeys commands, Oriented to person, place, time, situation. 18:57 Cardiovascular: Reports chest pain. db 19:30 General: Appears in no apparent distress. comfortable, Behavior is calm, cooperative. rg5 19:30 Pain: Complains of pain in chest Pain currently is 4 out of 10 on a pain scale. Quality rg5 of pain is described as aching. Neuro: Level of Consciousness is awake, alert, obeys commands, Oriented to person, place, time, situation. Cardiovascular: Reports chest pain, Patient's skin is warm and dry. Rhythm is sinus rhythm. Respiratory: Airway is patent Trachea midline Respiratory effort is even, unlabored, Respiratory pattern is regular, symmetrical. GI: Abdomen is obese. : No signs and/or symptoms were reported regarding the genitourinary system. EENT: No deficits noted. Derm: Skin is intact, Skin is dry, Skin is normal, Skin temperature is warm. Musculoskeletal: Circulation, motion, and sensation intact. Range of motion: intact in all extremities. 20:35 Reassessment: No changes from previously documented assessment. Patient and/or family rg5 updated on plan of care and expected duration. Pain level reassessed. Patient is alert, oriented x 3, equal unlabored respirations, skin warm/dry/pink. 21:00 Reassessment: Patient and/or family updated on plan of care and expected duration. Pain rg5 level reassessed. Patient is alert, oriented x 3, equal unlabored respirations, skin warm/dry/pink. Patient states feeling better. Patient states symptoms have improved. Vital Signs: 18:22 BP 147 / 95; Pulse 106; Resp 18; Temp 98.1; Pulse Ox 99% ; ko1 18:50 BP 139 / 112; Pulse 95; Resp 17; Pulse Ox 100% on R/A; db 19:30 BP 131 / 77; Pulse 88; Resp 17; Pulse Ox 99% on R/A; Pain 4/10; rg5 20:30 BP 129 / 85; Pulse 89; Resp 17; Pulse Ox 99% on R/A; rg5 21:15 BP 121 / 83; Pulse 94; Resp 17; Pulse Ox 99% on R/A; Pain 0/10; rg5 19:30 Pain Scale: Adult rg5 21:15 Pain Scale: Adult rg5 ED Course: 18:19 Patient arrived in ED. im 18:26 Triage completed. ko1 18:26 Arm band placed on right wrist. Patient placed in an exam room, on a stretcher, on ko1 pulse oximetry, Patient notified of wait time. 18:32 Hans Monge PA is PHCP. cp 18:32 Chivo Jacobs MD is Attending Physician. cp 19:03 XRAY Chest (1 view) In Process Unspecified. EDMS 19:06 Jarrell Gonzalez, DAYA is Primary Nurse. rg5 19:23 Warm blanket given. Verbal reassurance given. am7 19:23 Inserted saline lock: 20 gauge in left antecubital area, using aseptic technique. Blood am7 collected. Flushed with 10 mL NS. 19:52 EKG done, by ED staff, reviewed by Hans JAMES. oe 20:58 CT Head Brain wo Cont In Process Unspecified. EDMS 21:37 Provided Education on: POST ER CARE DONE. rg5 21:37 No provider procedures requiring assistance completed. rg5 21:37 IV discontinued, bleeding controlled, No redness/swelling at site. Pressure dressing rg5 applied. Administered Medications: 19:44 Drug: NS 0.9% IV 1000 ml IV at 1 bolus Per protocol; to be given as a bolus over 60 rg5 minutes Route: IV; Rate: 1 bolus; Site: left antecubital; 21:15 Follow up: IV Status: Completed infusion; IV Intake: 1000ml rg5 20:43 Drug: metoCLOPramide IVP 10 mg IVP once; over 1 to 2 minutes Route: IVP; Site: left rg5 antecubital; 21:14 Follow up: Response: No adverse reaction; Pain is decreased rg5 20:43 Drug: diphenhydrAMINE IVP 25 mg IVP once Route: IVP; Site: left antecubital; rg5 21:14 Follow up: Response: No adverse reaction; Pain is decreased rg5 20:43 Drug: Dexamethasone IVP 10 mg IVP once Route: IVP; Site: left antecubital; rg5 21:14 Follow up: Response: No adverse reaction; Pain is decreased rg5 20:43 Drug: Ketorolac IVP 15 mg IVP once Route: IVP; Site: left antecubital; rg5 21:14 Follow up: Response: No adverse reaction; Pain is decreased rg5 Medication: 21:37 VIS not applicable for this client. rg5 Intake: 21:15 IV: 1000ml; Total: 1000ml. rg5 Outcome: 21:07 Discharge ordered by MD. cp 21:37 Discharged to home ambulatory, rg5 21:37 Condition: stable 21:37 Discharge instructions given to patient, Instructed on discharge instructions, follow up and referral plans. Demonstrated understanding of instructions, follow-up care, medications, Prescriptions given X 2, 21:38 Patient left the ED. rg5 Addendum: 12/04/2024 15:50 Addendum: Culture Results: Positive urine culture. No further action required. Bacteria j l7 sensitive to prescribed antibiotic. Signatures: Dispatcher [employer] EDMS Hans Monge PA PA cp Espinosa, Orlando oe Leal, Jahala, RN RN jl7 Smiley Bentley RN RN koKathy Aviles RN RN Karin Ramos Rommel, RN RN rg5 Jennifer Kerns am7
[2024-11-30 00:24] VITALS: TEMP 98.1
[2024-11-30 00:26] VITALS: O2SAT 99
[2024-11-30 00:29] VITALS: BP 121/83
--- NOTE | 2024-12-03 12:42 | EKG ---
Test Date: 2024-11-29 Test Time: 19:34:01 Documentation Engineer: ANIKA MEASUREMENT RESULTS: Intervals: Rate: 99 HI: 158 QRSD: 78 QT: 342 QTc: 438 [place]: P: 63 HI: 158 QRS: 53 T: 40 INTERPRETIVE STATEMENTS: Normal sinus rhythm Normal ECG Compared to ECG 10/31/2024 20:46:55 No significant changes Electronically Signed On 12-03-24 12:35:11 CABLE RIGGER by Satya Thomson
== END 2024-11-29 21:38 | disposition home or self-care (01) ==
LOC: ER 18:16
DX: R51.9 Headache, unspecified (principal); R07.89 Other chest pain; R42 Dizziness and giddiness; N39.0 Urinary tract infection, site not specified; I11.9 Hypertensive heart disease without heart failure
CPT/HCPCS: 36415; 70450; 71045; 80048; 80076; 81001; 81025; 83735; 83880; 84484; 85025; 85379; 85610; 87077; 87086; 87088; 87186; 93005; 96361; 96374; 96375; 99284; J1100; J1200; J2765; J7030

== ENCOUNTER 2025-01-04 10:14 | Emergency (ER) | payer SELFPAY ==
--- OUTSIDE RECORDS SUMMARY | 2025-01-04 10:18 | XMS REPORT | Continuity of Care Document ---
Author Name Unknown Address [address] [facility] th[address] Address [address] [facility] [address] [place] [address] Care Team Providers Care Relationship Counselor Name Role Phone Anthony Farley Primary Care Physician Medications Ordered Medication Name Filled Medication Name Start Date Stop Date Current Medication? Ordering Clinician Indication Dosage Frequency Signature (SIG) Comments Components Source hydroxyzine HCl 25 mg tablet 12-31 00:00: 00 Yes 1mg Domingo Garcia Flonase Allergy Relief 50 mcg/actuati on nasal spray,suspe nsion 12-31 00:00: 00 Yes 2mcg/ac tuation Domingo Garcia Macrobid 100 mg capsule 12-31 00:00: 00 Yes 1mg Domingo Garcia benzonatate 200 mg capsule 12-31 00:00: 00 Yes 1mg Domingo Garcia TAKE 1 TABLET BY MOUTH TWICE A DAY 12-25 00:00: 00 01-30 00:00 :00 No 500 Domingo Garcia TAKE 1 CAPSULE TWICE DAILY. 12-21 00:00: 00 01-30 00:00 :00 No 100 Domingo Garcia Vital Signs Vital Name Observation Time Observation Value Comments S abigail Heart Rate 2024-12-31 16:26:00 105.00 /min Tony Garcia Respiratory Rate 2024-12-31 16:26:00 19.00 /min Domingo Tony Garcia BP Systolic 2024-12-31 16:26:00 137 mm[Hg] Step hen Tony Garcia BP Diastolic 2024-12-31 16:26:00 80 mm[Hg] Milton Garcia Weight Measured 2024-12-31 16:26:00 410.00 pounds Domingo Garcia Height Measured 2024-12-31 16:26:00 68.00 inches Domingo Garcia Body Temperature 2024-12-31 16:26:00 98.80 degrees Domingo Garcia BP Systolic 2023-12-21 15:55:00 154 mm[Hg] Tony hen Tony Garcia BP Diastolic 2023-12-21 15:55:00 86 mm[Hg] Milton phen Tony Garcia Weight Measured 2023-12-21 15:55:00 398.20 pounds Domingo Garcia Height Measured 2023-12-21 15:55:00 68.00 inches Domingo Garcia Body Temperature 2023-12-21 15:55:00 98.20 degrees Domingo Garcia Heart Rate 2023-12-21 15:55:00 91.00 /min Mirta Garcia Respiratory Rate 2023-12-21 15:55:00 18.00 /min Domingo Garcia Encounters Start Date/Time End Date/Time Encounter Type Admission Type Attending [facility] Care Department Encounter ID Source 2024-12-31 16:04:54 2024-12-31 16:04:54 Outpatient [facility] [id number] Domingo Garcia 2024-12-31 00:00:00 2024-12-31 00:00:[address] [facility] [id number] Domingo Garcia 2023-12-21 15:29:38 2023-12-21 15:29:38 Outpatient [facility] [id number] Domingo Garcia Results Test Description Test Time Test Comments Results Result Co mments Source CULTURE, URINE 2023-12-23 10:27:05 SPECIMEN NUMBER: [id number] CULTURE, URINE SPECIMEN NUMBER: [id number] SPECIMEN COMMENT: URINE SOURCE: URINE REPORT STATUS: FINAL FINAL REPORT: 12/23/2023 >100,000 CFU/ML UROGENITAL SVETLANA PRESENT NO COMMON PATHOGENS Domingo GarciaVAGINAL PATHOGENS DNA [id number] 10:33:38* Test Item Value Reference Range Interpretation Comme nts ALISON SPECIES (test code = 34316) NEGATIVE NEGATIVE G. VAGINALIS (test code = ) POSITIVE NEGATIVE A T. VAGINALIS (test code = 67351) NEGATIVE NEGATIVE Note: The BD [facility] ir VPIII Microbial Identification Testis a DNA probe test intended for use in the detectionand identification of Alison species, Gardnerellavaginalis and Trichomonas vaginalis nucleic acid. UNLESS OTHERWISE INDICATED, ALL TESTING PERFORMED AT [facility] [address] [place] [address] ESCORT CAR DRIVER: GARCÍA GARCÍA M.D. [place] NUMBER [id number] [facility]. [id number] VAGINAL PATHOGENS DNA [id number] 00:00:00* Test Item Value Reference Range Interpretation Comme nts ALISON SPECIES (test code = ) NEGATIVE G. VAGINALIS (test code = ) POSITIVE T. VAGINALIS (test code = 91225) NEGATIVE Domingo Garcia Notes Date/Time Note Provider Source Domingo Garcia [facility]
[2025-01-04] MEDS ORDERED: IPRATROPIUM BROM 0.5MG/2.5ML ONE (10:55)
[2025-01-04] MEDS ORDERED: KETOROLAC 30 MG/ML INJ ONE (10:55)
[2025-01-04] MEDS ORDERED: ALBUTEROL 2.5 MG/3 ML NEB SOL ONE (10:55)
[2025-01-04] MEDS ORDERED: NA CHLORIDE 0.9% 1,000 ML ONE (10:55)
[2025-01-04 11:30] LABS: Absolute Eosinophils 0.4 K/uL (0-0.5); Absolute Lymphocytes (CBC) 2.7 K/uL (0.7-4.9); Absolute Monocytes 0.7 K/uL (0.1-1.3); Absolute Neutrophil 2.5 K/uL (1.8-8.0); Basophils % 0.6 % (0-1.3); Hematocrit 41.5 % (36.0-45.0); Hemoglobin 13.6 g/dL (12.0-15.0); Lymphocytes % 42.5 % (15.3-44.8); MCH 23.9 pg (27.0-35.0); MCHC 32.7 g/dL (32.0-36.0); MCV 73.1 fL (80-100); MPV 8.8 fL (7.6-11.3); Monocytes % 10.4 % (3.3-12.3); Neutrophils % 40.5 % (41.7-73.7); Platelets 241 thou/uL (152-406); RBC Red Blood Cell Count 5.68 M/uL (3.86-4.86); Red Cell Distribution Width 17.5 % (12.1-15.2)
[2025-01-04 11:38] LABS: Specific Gravity 1.028 (1.005-1.030)
[2025-01-04 11:41] LABS: Specific Gravity 1.028 (1.005-1.030); Transitional Epithelial <5 /HPF (None Seen); Urine Bacteria 20-50 /HPF (<20); Urine Bilirubin NEGATIVE (Negative); Urine Blood 2+ (Negative); Urine Clarity Extremely Turbid (Clear); Urine Color Yellow (Yellow); Urine Culture Reflex Order NOT NEEDED; Urine Glucose NEGATIVE (Negative); Urine Ketones NEGATIVE (Negative); Urine Micro Reflex YN NO BILL MICROSCOPIC; Urine Mucus Slight /HPF (None Seen); Urine Nitrite NEGATIVE (Negative); Urine Protein 1+ (Negative); Urine Urobilinogen Normal (Normal); Urine WBC <5 /HPF (<5); Urine pH 5.5 (5.0-7.0)
[2025-01-04 11:42] LABS: Anion Gap 6.9 mEq/L (5.0-15.0)
[2025-01-04 11:44] LABS: Influenza A Ag Negative; Influenza B Ag Negative; SARS-CoV-2 Antigen Rapid Res Negative (Negative)
[2025-01-04 11:45] LABS: Potassium 3.9 mEq/L (3.5-5.1)
[2025-01-04 11:56] LABS: Monoscreen NEG (NEG)
--- NOTE | 2025-01-04 12:02 | RAD REPORT ---
EXAMINATION: TWO VIEW CHEST XR CLINICAL INDICATION: Chest pain;Cough TECHNIQUE: 2 views of the chest was performed. COMPARISON: No prior exam. FINDINGS: The lungs are well inflated and clear. The heart is normal in size. No displaced fractures evident. IMPRESSION: No acute or significant abnormalities.
[2025-01-04] MEDS ORDERED: NA CHLORIDE 0.9% 100 ML ONE (12:14)
[2025-01-04] MEDS ORDERED: CEFTRIAXONE 2000 MG/VIAL ONE (12:14)
[2025-01-04] MEDS ORDERED: ACETAMINOPHEN 500 MG TAB ONE (12:46)
[2025-01-04] MEDS ORDERED: DICYCLOMINE HCL 20 MG/2 ML AMP IM ONE (12:46)
--- NOTE | 2025-01-04 13:26 | RAD REPORT ---
EXAMINATION: US PELVIS TRANSVAGINAL WITH DOPPLER CLINICAL INDICATION: Female 24 years old. h/o cysts;Abd pain TECHNIQUE: Real-time ultrasonography of the pelvis was performed transvaginally. Color and spectral D oppler evaluation of the ovaries was performed. COMPARISON: 05/17/2024 FINDINGS: UTERUS AND CERVIX: The uterus measures 7.9 x 5.3 x 4.2 cm (cervix to fundus x AP x transverse). The u terus is normal. No masses seen The endometrium is normal, 13 mm in thickness. RIGHT OVARY: Nonvisualized due to bowel gas. LEFT OVARY: Normal. The left ovary measures 10.0 x 6.9 x 5.3 cm. Large cystic lesion seen measuring m ost 8 cm extending from the left ovary. Normal color and spectral Doppler evaluation of the left ovary.. FREE FLUID: No free fluid. ADDITIONAL FINDINGS: IMPRESSION: There is evidence of a large left ovarian cyst measuring up to 8 cm. This was present on 05/17/2024 [facility] measuring up to 12 cm. Recommendations for f/u of ovarian anechoic simple cyst, simple cyst with single thin <3 mm septation, or focal calcification in wall of cyst (1): Pre-menopause: >7 cm Consider MR w/IVC or surgical evaluation (1) Recommendations based on 2010 SRU Consensus Conference Statement on the Management of Asymptomatic Ovarian and Other Adnexal Cysts Imaged at US: Radiology. 2009;256(3):948-54
--- NOTE | 2025-01-04 13:43 | ER ---
Nurse's Notes [facility] Name: Echo Ratliff Age: 24 yrs Sex: Female : 2000 Arrival Date: 01/04/2025 Time: 10:14 Bed 20 Private MD: Diagnosis: UTI/ Urinary tract infection, site not specified;Acute bronchitis, unspecified;Other ovarian cysts Presentation: 01/04 10:42 Chief complaint: Patient states: Chest congestion and burning with urination x 1 week, jl7 clinic gave Macrobid for 4 days, no improvement. Coronavirus screen: Client presents with at least one sign or symptom that may indicate coronavirus-19. Ebola Screen: No symptoms or risks identified at this time. Initial Sepsis Screen: Does the patient meet any 2 criteria? No. Patient's initial sepsis screen is negative. Does the patient have a suspected source of infection? No. Patient's initial sepsis screen is negative. Risk Assessment: Do you want to hurt yourself or someone else? Patient reports no desire to harm self or others. Onset of symptoms was December 28, 2024. 10:42 Method Of Arrival: Ambulatory [facility] 10:42 Acuity: JANUARY 3 jl7 Triage Assessment: 10:44 General: Appears in no apparent distress. uncomfortable, Behavior is calm, cooperative, jl7 appropriate for age. Pain: Complains of pain in suprapubic area Pain currently is 6 out of 10 on a pain scale. 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 - Infectious Disease History:: Denies. - Social history:: Smoking status: Reported history of juuling and/or vaping. Screenin:56 [facility] ED Fall Risk Assessment (Adult) History of falling in the last 3 months, bp including since admission No falls in past 3 months (0 pts) Confusion or Disorientation No (0 pts) Intoxicated or Sedated No (0 pts) Impaired Gait No (0 pts) Mobility Assist Device Used No (0 pt) Altered Elimination No (0 pt) Score/Fall Risk Level 0 - 2 = Low Risk Oriented to surroundings. Abuse screen: Denies threats or abuse. Denies injuries from another. Nutritional screening: No deficits noted. Tuberculosis screening: No symptoms or risk factors identified. Assessment: 12:56 Reassessment: PT RETURNED FROM U/S. bp Vital Signs: 10:42 BP 135 / 111; Pulse 70; Resp 15; Pulse Ox 100% ; Weight 186.43 kg; Height 5 ft. 11 in. ;jl7 11:30 BP 159 / 116; Pulse 92; Resp 11; Pulse Ox 100% ; bp 12:56 BP 147 / 101; Pulse 95; Resp 19; Pulse Ox 99% ; bp 10:42 Body Mass Index 57.32 (186.43 kg, 180.34 cm) jl7 ED Course: 10:18 Patient arrived in ED. im 10:20 Tianna Jenkins PA-C is PHCP. sb4 10:20 Chivo Jacobs MD is Attending Physician. sb4 10:44 Triage completed. jl7 10:44 Arm band placed on right wrist. jl7 10:46 Sammy Johnston, DAYA is Primary Nurse. bp 11:07 Initial lab(s) drawn, by vt, sent to lab. Urine collected: clean catch specimen, karrie bp colored, COVID swab sent to lab. Flu and/or RSV swab sent to lab. Inserted saline lock: 20 gauge in left antecubital area, using aseptic technique. Blood collected. Flushed with 10 mL NS. 11:57 Chest Pa And Lat (2 Views) XRAY In Process Unspecified. EDMS 12:56 Patient has correct armband on for positive identification. bp 13:05 Transvaginal Study (probe) In Process Unspecified. EDMS 14:36 No provider procedures requiring assistance completed. IV discontinued, intact, bp bleeding controlled, No redness/swelling at site. Pressure dressing applied. Administered Medications: 11:06 Drug: DuoNeb Nebulize (3:1) (2.5 mg - 0.5 mg) 3 ml Nebulizer once Route: Nebulizer; bp 13:37 Follow up: Response: No adverse reaction bp 11:06 Drug: NS 0.9% IV 1000 ml IV at 1 bolus Per protocol; to be given as a bolus over 60 bp minutes Route: IV; Rate: 1 bolus; Site: left antecubital; 11:06 Drug: Ketorolac IVP 15 mg IVP once Route: IVP; Site: left antecubital; bp 13:37 Follow up: Response: No adverse reaction bp 12:05 Drug: Rocephin IV 2 grams IV at calculated rate once; Given slow IV push per pharmarcy bp instructions Route: IV; Rate: calculated rate; Site: left antecubital; 12:55 Drug: Acetaminophen PO 1000 mg PO once Route: PO; bp 13:37 Follow up: Response: No adverse reaction bp 12:56 Drug: Dicyclomine IM 20 mg IM once Route: IM; Site: left deltoid; bp 13:37 Follow up: Response: No adverse reaction bp Outcome: 13:43 Discharge ordered by MD. vaughn 14:36 Discharged to home ambulatory, with family, bp 14:36 Condition: stable 14:36 Discharge instructions given to patient, Instructed on discharge instructions, follow up and referral plans. medication usage, Demonstrated understanding of instructions, follow-up care, medications, Prescriptions given X 2, 14:37 Patient left the ED. bp Signatures: Dispatcher [employer] EDMS Michelle Sharif RN RN jl7 Peltier, Brian, RN RN Tianna Cardona PAToddC PAToddC sb4 Karin Martinez
--- NOTE | 2025-01-04 13:43 | EDPHYS ---
Physician Documentation [facility] Name: Echo Ratliff Age: 24 yrs Sex: Female : 2000 Arrival Date: 01/04/2025 Time: 10:14 Bed 20 Private MD: ED Physician Chivo Jacobs HPI: 01/04 10:59 This 24 yrs old Female presents to ER via Ambulatory with complaints of Flu Symptoms, sb4 Urinary Problem. 10:59 cough, congestion, shortness of breath, UTI symptoms x 1 week. was placed on macrobid sb4 for UTI, states her symptoms have not improved, have actually gotten worse. fever has resolved. no n/v/d. has been taking ibuprofen, tylenol, nyquil, flonase as well. 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 - Infectious Disease History:: Denies. - Social history:: Smoking status: Reported history of juuling and/or vaping. ROS: 10:59 Constitutional: Negative for fever, chills, and weight loss, sb4 10:59 Respiratory: Positive for cough, shortness of breath, 10:59 Abdomen/GI: Positive for abdominal pain, 10:59 : Positive for burning with urination, 10:59 All other systems are negative, Exam: 11:11 Head/Face: Normocephalic, atraumatic. Eyes: Extra-ocular motions intact. Periorbital sb4 areas with no swelling, redness, or edema. ENT: Mucous membranes moist. Cardiovascular: Regular rate and rhythm with a normal S1 and S2. Respiratory: No increased work of breathing, no retractions or nasal flaring. Abdomen/GI: Soft, non-tender, no distension. Skin: Warm, dry with normal turgor. Normal color with no rashes, no lesions, and no evidence of cellulitis. 11:11 Constitutional: The patient appears in no acute distress, alert, awake, obese, 11:11 Respiratory: Breath sounds: are clear throughout, Vital Signs: 10:42 BP 135 / 111; Pulse 70; Resp 15; Pulse Ox 100% ; Weight 186.43 kg; Height 5 ft. 11 in. ;jl7 11:30 BP 159 / 116; Pulse 92; Resp 11; Pulse Ox 100% ; bp 12:56 BP 147 / 101; Pulse 95; Resp 19; Pulse Ox 99% ; bp 10:42 Body Mass Index 57.32 (186.43 kg, 180.34 cm) jl7 MDM: 10:20 Medical Screening Exam initiated sb4 14:31 Data reviewed: vital signs, nurses notes, lab test result(s), radiologic studies, and sb4 as a result, I will discharge patient. Counseling: I had a detailed discussion with the patient and/or guardian regarding the historical points, exam findings, and any diagnostic results supporting the discharge/admit diagnosis, the presence of at least one elevated blood pressure reading (>120/80) during this emergency department visit, lab results, radiology results, the need for outpatient follow up, an OB/Gyne specialist, to return to the emergency department if symptoms worsen or persist or if there are any questions or concerns that arise at home. 01/04 10:47 Order name: UAM; Complete Time: 11:44 sb4 01/04 10:47 Order name: Test, Urine; Complete Time: 11:44 sb4 01/04 10:47 Order name: CBC with Diff; Complete Time: 11:33 sb4 01/04 10:47 Order name: BMP; Complete Time: 11:47 sb4 01/04 10:47 Order name: Gaston Screen Profile; Complete Time: 11:57 sb4 01/04 10:49 Order name: COVID-19 Ag + Flu A+B Ag; Complete Time: 11:47 sb4 01/04 10:47 Order name: Chest Pa And Lat (2 Views) XRAY; Complete Time: 12:03 sb4 01/04 12:15 Order name: Transvaginal Study (probe); Complete Time: 13:26 sb4 01/04 10:47 Order name: IV Start; Complete Time: 11:06 sb4 Administered Medications: 11:06 Drug: DuoNeb Nebulize (3:1) (2.5 mg - 0.5 mg) 3 ml Nebulizer once Route: Nebulizer; bp 13:37 Follow up: Response: No adverse reaction bp 11:06 Drug: NS 0.9% IV 1000 ml IV at 1 bolus Per protocol; to be given as a bolus over 60 bp minutes Route: IV; Rate: 1 bolus; Site: left antecubital; 11:06 Drug: Ketorolac IVP 15 mg IVP once Route: IVP; Site: left antecubital; bp 13:37 Follow up: Response: No adverse reaction bp 12:05 Drug: Rocephin IV 2 grams IV at calculated rate once; Given slow IV push per pharmarcy bp instructions Route: IV; Rate: calculated rate; Site: left antecubital; 12:55 Drug: Acetaminophen PO 1000 mg PO once Route: PO; bp 13:37 Follow up: Response: No adverse reaction bp 12:56 Drug: Dicyclomine IM 20 mg IM once Route: IM; Site: left deltoid; bp 13:37 Follow up: Response: No adverse reaction bp Disposition: 18:05 Co-signature as Attending Physician, Chivo Jacobs MD I reviewed the patient's care rt provided by the Advanced Practice Provider and agree with the diagnosis and treatment plan. Disposition Summary: 01/04/25 13:43 Discharge Ordered Notes: Location: Home sb4 Problem: new sb4 Symptoms: have improved sb4 Condition: Stable sb4 Diagnosis - UTI/ Urinary tract infection, site not specified sb4 - Acute bronchitis, unspecified sb4 - Other ovarian cysts sb4 Followup: sb4 - With: Emergency Department - When: As needed - Reason: Trouble breathing, Worsening of condition Discharge Instructions: - Discharge Summary Sheet sb4 - Acute Bronchitis, Adult sb4 - Urinary Tract Infection, Adult, [id number]-[id number] sb4 - Ovarian Cyst, Ojbc-er-Arrp sb4 Forms: - Antibiotic Education sb4 - Patient Portal Instructions sb4 - Leadership Thank You Letter sb4 Prescriptions: - Augmentin 875-125 mg Oral Tablet - take 1 tablet ORAL route every 12 hours for 10 days; 20 tablet; Refills: 0, sb4 Product Selection Permitted - Prednisone 20 mg Oral Tablet - take 2 tablets ORAL route once daily for 5 days; 10 tablet; Refills: 0, Product sb4 Selection Permitted Signatures: Dispatcher [employer] EDMS Michelle Sharif, RN RN jl7 Sammy Johnston, RN RN bp Tianna Jenkins, PA-C PA-C sb4 Chivo Jacobs MD MD rt Corrections: (The following items were deleted from the chart) 10:47 10:47 Chest Pa And Lat (2 Views)+RAD.RAD.BRZ ordered. EDMS EDMS 10:47 10:47 Urinalysis W/Microscopic+U.LAB.BRZ ordered. EDMS EDMS 10:47 10:47 Test, Urine+UC.LAB.BRZ ordered. EDMS EDMS 10:47 10:47 CBC+H.LAB.BRZ ordered. EDMS EDMS 10:47 10:47 BASIC METABOLIC PANEL+C.LAB.BRZ ordered. EDMS EDMS 10:47 10:47 MONO SCREEN PROFILE+I.LAB.BRZ ordered. EDMS EDMS
[2025-01-04 15:16] VITALS: BP 147/101; O2SAT 99
== END 2025-01-04 14:37 | disposition home or self-care (01) ==
LOC: ER 10:14
DX: N39.0 Urinary tract infection, site not specified (principal); J20.9 Acute bronchitis, unspecified; N83.299 Other ovarian cyst, unspecified side; Z11.52 Encounter for screening for COVID-19
CPT/HCPCS: 36415; 71046; 76830; 80048; 81001; 81025; 85025; 86308; 87428; 96372; 96374; 96375; 99285; J0500; J0696; J7030; J7613; J7644

== ENCOUNTER 2025-07-30 18:14 | Emergency (ER) | payer BC, SELFPAY ==
--- OUTSIDE RECORDS SUMMARY | 2025-07-30 18:18 | XMS REPORT | Continuity of Care Document ---
Author Name Unknown Address [address] [facility] [address] [facility] [place] [address] [facility] [address] [facility] [address] [facility]. [address] [place] [address] Care Team Providers Care Dam Tender Assistant Name Role Phone Anthony Farley Primary Care Physician Allergies, Adverse Reactions, Alerts Allergy Name Allergy Type Status Severity Reaction(s) Onset Date Inactive Date Treating Clinician Comments Source no allergie s (Not Checked) Propensi ty to adverse reaction to drug Active 01-16 00:00: 00 Domingo Garcia Medications Ordered Medication Name Filled Medication Name Start Date Stop Date Current Medication? Ordering Clinician Indication Dosage Frequency Signature (SIG) Comments Components Source neomycin-po lymyxin-dex ameth 3.5 mg/mL-10,00 0 unit/mL-0.1 % eye drops 03-30 00:00: 00 Yes 12unit/ mL-0.1 % Domingo Garcia EVENT DESIGNER Thyroid 60 mg tablet 03-27 00:00: 00 Yes mg Domingo Garcia EVENT DESIGNER Thyroid 60 mg tablet 03-26 00:00: 00 Yes mg Domingo Garcia amlodipine 10 mg tablet 03-26 00:00: 00 Yes 1mg Domingo Garcia hydrochloro thiazide 25 mg tablet 03-26 00:00: 00 Yes 1mg Domingo Garcia amlodipine 5 mg tablet 01-16 00:00: 00 Yes mg Domingo Garcia EVENT DESIGNER Thyroid 60 mg tablet 01-16 00:00: 00 Yes mg Domingo Garcia hydroxyzine HCl 25 mg tablet 12-31 00:00: 00 Yes 1mg Domingo Garcia Flonase Allergy Relief 50 mcg/actuati on nasal spray,suspe nsion 12-31 00:00: 00 Yes 2mcg/ac tuation Domingo Garcia Macrobid 100 mg capsule 12-31 00:00: 00 Yes 1mg Domingo Garcia benzonatate 200 mg capsule 12-31 00:00: 00 Yes 1mg Domingo Garcia EVENT DESIGNER Thyroid 60 mg tablet 2023-11 00:00: 00 Yes mg Domingo Garcia amlodipine 5 mg tablet 2023-11 00:00: 00 Yes mg Domingo Garcia TAKE 1 TABLET BY MOUTH TWICE A DAY 12-25 00:00: 00 01-30 00:00 :00 No 500 Domingo Garcia TAKE 1 CAPSULE TWICE DAILY. 12-21 00:00: 00 01-30 00:00 :00 No 100 Domingo Garcia Vital Signs Vital Name Observation Time Observation Value Comments S ource BP Systolic 2025-03-30 11:05:00 151 mm[Hg] Step hen Tony Garcia BP Diastolic 2025-03-30 11:05:00 86 mm[Hg] Milton phen Tony Garcia Weight Measured 2025-03-30 11:05:00 413.20 pounds Domingo Garcia Height Measured 2025-03-30 11:05:00 68.00 inches Domingo Garcia Body Temperature 2025-03-30 11:05:00 97.80 degrees Domingo Garcia Heart Rate 2025-03-30 11:05:00 87.00 /min Mirta en Tony Garcia Respiratory Rate 2025-03-30 11:05:00 17.00 /min Domingo Garcia BP Systolic 2025-03-26 14:10:00 162 mm[Hg] Step hen Tony Garcia BP Diastolic 2025-03-26 14:10:00 96 mm[Hg] Milton phen Tony Garcia Weight Measured 2025-03-26 14:10:00 416.80 pounds Domingo Garcia Height Measured 2025-03-26 14:10:00 68.00 inches Domingo Garcia Body Temperature 2025-03-26 14:10:00 97.50 degrees Domingo Garcia Heart Rate 2025-03-26 14:10:00 98.00 /min Mirta en F Jose Respiratory Rate 2025-03-26 14:10:00 18.00 /min Domingo F Jose BP Systolic 2025-01-16 16:16:00 147 mm[Hg] Step hen F Jose BP Diastolic 2025-01-16 16:16:00 64 mm[Hg] Milton phen F Jose Weight Measured 2025-01-16 16:16:00 405.20 pounds Domingo F Jose Height Measured 2025-01-16 16:16:00 68.00 inches Domingo F Jose Body Temperature 2025-01-16 16:16:00 97.40 degrees Domingo F Jose Heart Rate 2025-01-16 16:16:00 110.00 /min Step hen F Jose Respiratory Rate 2025-01-16 16:16:00 19.00 /min Domingo F Jose Heart Rate 2024-12-31 16:26:00 105.00 /min Step hen F Jose Respiratory Rate 2024-12-31 16:26:00 19.00 /min Domingo F Jose BP Systolic 2024-12-31 16:26:00 137 mm[Hg] Step hen F Jose BP Diastolic 2024-12-31 16:26:00 80 mm[Hg] Milton phen F Jose Weight Measured 2024-12-31 16:26:00 410.00 pounds Domingo F Jose Height Measured 2024-12-31 16:26:00 68.00 inches Domingo F Jose Body Temperature 2024-12-31 16:26:00 98.80 degrees Domingo F Jose BP Systolic 2023-12-21 15:55:00 154 mm[Hg] Step hen F Jose BP Diastolic 2023-12-21 15:55:00 86 mm[Hg] Milton phen F Jose Weight Measured 2023-12-21 15:55:00 398.20 pounds Domingo F Jose Height Measured 2023-12-21 15:55:00 68.00 inches Domingo F Jose Body Temperature 2023-12-21 15:55:00 98.20 degrees Domingo F Jose Heart Rate 2023-12-21 15:55:00 91.00 /min Mirta en F Jose Respiratory Rate 2023-12-21 15:55:00 18.00 /min Domingo F Jose Encounters Start Date/Time End Date/Time Encounter Type Admission Type Attending Clinicians Care Facility Care Department Encounter ID Source 2025-03-30 10:50:11 2025-03-30 10:50:11 Outpatient SFA SFA [id number] Domingo Garcia 2025-03-30 00:00:00 2025-03-30 00:00:00 Outpatient Visit SFA [id number] Domingo Garcia 2025-03-26 14:00:51 2025-03-26 14:00:51 Outpatient SFA SFA [id number] Domingo Garcia 2025-03-26 00:00:00 2025-03-26 00:00:00 Outpatient Visit SFA [id number] Domingo Garcia 2025-01-20 10:56:00 2025-01-20 10:56:00 Outpatient SFA SFA [id number] Domingo Garcia 2025-01-16 16:09:14 2025-01-16 16:09:14 Outpatient SFA SFA [id number] Domingo Garcia 2025-01-16 00:00:00 2025-01-16 00:00:00 Outpatient Visit SFA [id number] Domingo Garcia 2025-01-14 08:03:49 2025-01-14 08:03:49 Outpatient SFA SFA [id number] Domingo Garcia 2024-12-31 16:04:54 2024-12-31 16:04:54 Outpatient SFA SFA [id number] Domingo Garcia 2024-12-31 00:00:00 2024-12-31 00:00:00 Outpatient Visit SFA [id number] Domingo Garcia 2023-12-21 15:29:38 2023-12-21 15:29:38 Outpatient SFA SFA [id number] Domingo Garcia Results Test Description Test Time Test Comments Results Result Co mments Source Domingo [id number] 00:00:00* Test Item Value Reference Range Interpretation Comme nts TSH (test code = 3016-3) 1.89 mIU/L Domingo Jimenez AustinLIPID PANEL (REFL)2025-01-21 00:00:00* Test Item Value Reference Range Interpretation Comme nts CHOLESTEROL, TOTAL (test cod e = 2093-3) 100 mg/dL HDL CHOLESTEROL (test code = 2085-9) 36 mg/dL TRIGLYCERIDES (test code = 2571-8) 65 mg/dL LDL-CHOLESTEROL (test code = 99077-3) 50 mg/dL(calc) CHOL/HDLC RATIO (test code = 9830-1) 2.8 (calc) NON HDL CHOLESTEROL (test co de = 01144-7) 64 mg/dL(calc) Domingo GarciaCOMPREHENSIVE METABOLIC [id number] 00:00:00* Test Item Value Reference Range Interpretation Comme nts GLUCOSE (test code = 2345-7) 96 mg/dL UREA NITROGEN (BUN) (test code = 3094-0) 19 mg/dL CREATININE (test code = 2160-0) 0.65 mg/dL EGFR (test code = 80024-8) 126 mL/min/1.73m2 BUN/CREATININE RATIO (test code = 3097-3) SEE NOTE: (calc) SODIUM (test code = 2951-2) 139 mmol/L POTASSIUM (test code = 2823-3) 4.4 mmol/L CHLORIDE (test code = 2075-0) 106 mmol/L CARBON DIOXIDE (test code = 2027-9) 24 mmol/L CALCIUM (test code = 64587-8) 8.8 mg/dL PROTEIN, TOTAL (test code = 2885-2) 7.3 g/dL ALBUMIN (test code = 1751-7) 3.9 g/dL GLOBULIN (test code = 82736-5) 3.4 g/dL(calc) ALBUMIN/GLOBULIN RATIO (test code = 1759-0) 1.1 (calc) BILIRUBIN, TOTAL (test code = 1975-2) 0.4 mg/dL ALKALINE PHOSPHATASE (test code = 6768-6) 88 U/L AST (test code = 1920-8) 16 U/L ALT (test code = 1742-6) 25 U/L Domingo F AustinHEMOGLOBIN [id number] 00:00:00* Test Item Value Reference Range Interpretation Comme nts HEMOGLOBIN A1c (test code = 4548-4) 6.2 %oftotalHgb Domingo GarciaLIPID PANEL (REFL)2025-01-21 00:00:00* Test Item Value Reference Range Interpretation Comme nts CHOLESTEROL, TOTAL (test cod e = 2093-3) 100 mg/dL HDL CHOLESTEROL (test code = 2085-9) 36 mg/dL TRIGLYCERIDES (test code = 2571-8) 65 mg/dL LDL-CHOLESTEROL (test code = 84106-3) 50 mg/dL(calc) CHOL/HDLC RATIO (test code = 9830-1) 2.8 (calc) NON HDL CHOLESTEROL (test co de = 47185-7) 64 mg/dL(calc) Domingo GarciaCOMPREHENSIVE METABOLIC [id number] 00:00:00* Test Item Value Reference Range Interpretation Comme nts GLUCOSE (test code = 2345-7) 96 mg/dL UREA NITROGEN (BUN) (test code = 3094-0) 19 mg/dL CREATININE (test code = 2160-0) 0.65 mg/dL EGFR (test code = 46884-7) 126 mL/min/1.73m2 BUN/CREATININE RATIO (test code = 3097-3) SEE NOTE: (calc) SODIUM (test code = 2951-2) 139 mmol/L POTASSIUM (test code = 2823-3) 4.4 mmol/L CHLORIDE (test code = 2075-0) 106 mmol/L CARBON DIOXIDE (test code = 2027-9) 24 mmol/L CALCIUM (test code = 73331-8) 8.8 mg/dL PROTEIN, TOTAL (test code = 2885-2) 7.3 g/dL ALBUMIN (test code = 1751-7) 3.9 g/dL GLOBULIN (test code = 41467-2) 3.4 g/dL(calc) ALBUMIN/GLOBULIN RATIO (test code = 1759-0) 1.1 (calc) BILIRUBIN, TOTAL (test code = 1975-2) 0.4 mg/dL ALKALINE PHOSPHATASE (test code = 6768-6) 88 U/L AST (test code = 1920-8) 16 U/L ALT (test code = 1742-6) 25 U/L Domingo GarciaHEMOGLOBIN [id number] 00:00:00* Test Item Value Reference Range Interpretation Comme noelle HEMOGLOBIN A1c (test code = 4548-4) 6.2 %oftotalHgb Domingo Ochoa [id number] 10:27:05SPECIMEN NUMBER: [id number] CULTURE, URINE SPECIMEN NUMBER: [id number] SPECIMEN COMMENT: URINE SOURCE: URINE REPORT STATUS: FINAL FINAL REPORT: 12/23/2023 >100,000 CFU/ML UROGENITAL SVETLANA PRESENT NO COMMON PATHOGENSCULTURE, [id number] 00:00:00* Test Item Value Reference Range Interpretation Comme nts CULTURE, URINE (test code = 96358) SPECIMEN NUMBER: [id number] Domingo Ochoa, [id number] 00:00:00* Test Item Value Reference Range Interpretation Comme nts CULTURE, URINE (test code = 68410) SPECIMEN NUMBER: [id number] Domingo Ochoa, [id number] 00:00:00* Test Item Value Reference Range Interpretation Comme nts CULTURE, URINE (test code = 03874) SPECIMEN NUMBER: [id number] Domingo Ochoa, [id number] 00:00:00* Test Item Value Reference Range Interpretation Comme nts CULTURE, URINE (test code = 85175) SPECIMEN NUMBER: [id number] Domingo GarciaVAGINAL PATHOGENS DNA [id number] 10:33:38* Test Item Value Reference Range Interpretation Comme nts ALISON SPECIES (test code = 43820) NEGATIVE NEGATIVE G. VAGINALIS (test code = 45926) POSITIVE NEGATIVE A T. VAGINALIS (test code = 25905) NEGATIVE NEGATIVE Note: The [facility] VPIII Microbial Identification Testis a DNA probe test intended for use in the detectionand identification of Alison species, Gardnerellavaginalis and Trichomonas vaginalis nucleic acid. UNLESS OTHERWISE INDICATED, ALL TESTING PERFORMED AT [facility] [address] [place] [id number] DATA SECURITY CONSULTANT: GARCÍA GARCÍA M.D. CLIA NUMBER [id number] [place] [id number] VAGINAL PATHOGENS DNA [id number] 00:00:00* Test Item Value Reference Range Interpretation Comme nts ALISON SPECIES (test code = 23693) NEGATIVE G. VAGINALIS (test code = 51328) POSITIVE T. VAGINALIS (test code = 58809) NEGATIVE Domingo GarciaVAGINAL PATHOGENS DNA [id number] 00:00:00* Test Item Value Reference Range Interpretation Comme nts ALISON SPECIES (test code = 89219) NEGATIVE G. VAGINALIS (test code = 91123) POSITIVE T. VAGINALIS (test code = 65008) NEGATIVE Domingo GarciaVAGINAL PATHOGENS DNA [id number] 00:00:00* Test Item Value Reference Range Interpretation Comme nts ALISON SPECIES (test code = 21283) NEGATIVE G. VAGINALIS (test code = 48747) POSITIVE T. VAGINALIS (test code = 01437) NEGATIVE Domingo GarciaVAGINAL PATHOGENS DNA [id number] 00:00:00* Test Item Value Reference Range Interpretation Comme nts ALISON SPECIES (test code = 82561) NEGATIVE G. VAGINALIS (test code = 18876) POSITIVE T. VAGINALIS (test code = 35007) NEGATIVE Domingo Jimenez Jose Notes Date/Time Note Provider Source Domingo Rishabh [facility]2025-05-22 00:00:[address] [facility]2025-03-14 00:00:[address] [facility]2025-02-26 00:00:00 [facility]
[2025-07-30] MEDS ORDERED: METOCLOPRAMIDE 10 MG/2mL INJ ONE (19:43)
[2025-07-30] MEDS ORDERED: NA CHLORIDE 0.9% 1,000 ML ONE (19:44)
[2025-07-30] MEDS ORDERED: DICYCLOMINE HCL 20 MG/2 ML AMP IM ONE (19:44)
[2025-07-30] MEDS ORDERED: NA CHLORIDE 0.9% 50 ML ONE (19:44)
[2025-07-30] MEDS ORDERED: DIPHENHYDRAMINE 50 MG/ML VIAL ONE (19:44)
[2025-07-30 19:54] LABS: Absolute Lymphocytes (CBC) 2.5 K/uL (0.7-4.9); Hematocrit 38.6 % (36.0-45.0); Hemoglobin 12.5 g/dL (12.0-15.0); MCH 23.3 pg (27.0-35.0); MCHC 32.4 g/dL (32.0-36.0); MCV 71.9 fL (80-100); MPV 8.7 fL (7.6-11.3); Nucleated RBC Absolute Count 0.0 (0-0); Nucleated Red Blood Cells % 0.0 % (0-0); RBC Red Blood Cell Count 5.37 M/uL (3.86-4.86); White Blood Count 11.10 thou/uL (4.3-10.9)
--- NOTE | 2025-07-30 20:12 | RAD REPORT ---
EXAM: Right upper quadrant ultrasound. CLINICAL HISTORY: ABD PAIN COMPARISON: None. FINDINGS: Gallbladder: Limited in visualization without stones. Bile ducts: No intrahepatic or extrahepatic biliary dilatation. Common bile duct measures 3 mm. Limited imaging of the liver shows limited sonographic penetrance. IMPRESSION: No gallstones or wall thickening seen.
[2025-07-30 20:13] LABS: ALT/SGPT 35.0 U/L (13-56); AST/SGOT 28.0 U/L (15-37); Albumin 3.1 g/dL (3.4-5.0); Albumin/Globulin Ratio 0.7 (1.1-1.8); Alkaline Phosphatase 97.0 U/L (45-117); Anion Gap 7.8 mEq/L (5.0-15.0); BUN Blood Urea Nitrogen 17.0 mg/dL (7-18); Globulin 4.5 g/dL (2.3-3.5); Glucose Level 98.0 mg/dL (74-106); Lipase 18.0 U/L (13-75); Potassium 3.8 mEq/L (3.5-5.1)
[2025-07-30 20:36] LABS: Urine Culture Reflex Order REFLEXED; Urine Microscopic Reflex YN ORDER UMIC
--- NOTE | 2025-07-30 20:42 | RAD REPORT ---
EXAMINATION: CT ABDOMEN AND PELVIS WITH CONTRAST CLINICAL INDICATION: right upper abdomen pain TECHNIQUE: CT abdomen and pelvis was performed, after the administration of IV contrast, as per [facility] protocol. Axial, sagittal and coronal reconstructions were obtained. One or more of the following dose reduction techniques were used: Automated exposure control, adjustment of the mA and k V according to patient size, and iterative reconstruction. Unless otherwise specified, incidental findings do not require dedicated imaging follow-up. COMPARISON: 01/04/2025 pelvic ultrasound FINDINGS: LOWER CHEST: The visualized lung bases are clear. LIVER: Significant fatty liver with hepatomegaly present. No focal lesion or biliary dilitation. Meño ssly unremarkable gallbladder. SPLEEN: Normal size. No focal lesion. PANCREAS: No mass, ductal dilation, or sonja-pancreatic fluid. ADRENALS: Normal; no mass. KIDNEYS: Normal size and contour. No hydronephrosis. GASTROINTESTINAL TRACT: No evidence of free air, significant intra-abdominal free fluid, bowel obstru ction or abscess. APPENDIX: Normal appendix. LYMPH NODES: No lymphadenopathy. MUSCULOSKELETAL: Mild multilevel spinal degenerative changes. ADDITIONAL FINDINGS: Large 10.7 x 9.8 cm pelvic cystic lesion likely ovarian cyst or cystadenoma. IMPRESSION: Advanced fatty liver. 10.7 x 9.8 cm cystic lesion in the pelvis anterior to the uterus likely ovarian cyst or cystadenoma. Nonemergent gynecologic follow-up recommended.
--- NOTE | 2025-07-30 20:53 | ER ---
Nurse's Notes [facility] Name: Echo Ratliff Age: 25 yrs Sex: Female : 2000 Arrival Date: 07/30/2025 Time: 18:14 Bed 6 Private MD: Diagnosis: Upper abdominal pain, unspecified;Other and unspecified ovarian cysts Presentation: 07/30 18:45 Chief complaint: Patient states: c/o RUQ pain that radiates around right side to Right me1 upper back x 4 days. Reports n/v. Pain is worse after eating. 04/14 "sharp". Coronavirus screen: Vaccine status: Patient reports being unvaccinated. Ebola Screen: No symptoms or risks identified at this time. Initial Sepsis Screen: Does the patient meet any 2 criteria? No. Patient's initial sepsis screen is negative. Does the patient have a suspected source of infection? No. Patient's initial sepsis screen is negative. Risk Assessment: Do you want to hurt yourself or someone else? Patient reports no desire to harm self or others. Onset of symptoms was July 26, 2025. 18:45 Method Of Arrival: Ambulatory va1 18:45 Acuity: JANUARY 3 me1 Historical: - Allergies: 18:47 lavender; me1 - PMHx: 18:47 Hypertension; Hypothyroidism; Ovarian cysts; PCOS; me1 - PSHx: 18:47 None; me1 - Immunization history:: Adult Immunizations up to date. - Infectious Disease History:: Denies. - Social history:: Smoking status: Reported history of juuling and/or vaping. Screenin:43 [facility] ED Fall Risk Assessment (Adult) History of falling in the last 3 months, lg3 including since admission No falls in past 3 months (0 pts) Confusion or Disorientation No (0 pts) Intoxicated or Sedated No (0 pts) Impaired Gait No (0 pts) Mobility Assist Device Used No (0 pt) Altered Elimination No (0 pt) Score/Fall Risk Level 0 - 2 = Low Risk Oriented to surroundings, Maintained a safe environment, Educated pt \\T\\ family on fall prevention, incl call for assistance when getting out of bed, Assessed \\T\\ reinforced patient's understanding of fall precautions. Abuse screen: Denies threats or abuse. Denies injuries from another. Nutritional screening: No deficits noted. Tuberculosis screening: No symptoms or risk factors identified. Assessment: 19:43 General: Appears in no apparent distress. comfortable, Behavior is calm, cooperative. lg3 Pain: Complains of pain in right upper quadrant Pain radiates to mid back area. Neuro: No deficits noted. Baum Agitation-Sedation Scale (RASS): 0 - Alert and Calm Level of Consciousness is awake, alert, obeys commands, Oriented to person, place, time, situation. Cardiovascular: No deficits noted. Denies chest pain, shortness of breath, Capillary refill < 3 seconds Clubbing of nail beds is absent JVD is absent Patient's skin is warm and dry. Respiratory: No deficits noted. Airway is patent Respiratory effort is even, unlabored, Respiratory pattern is regular, symmetrical. GI: Abdomen is round non-distended, obese, Bowel sounds present X 4 quads. Abd is soft X 4 quads Abdomen is tender to palpation in epigastric area and right upper quadrant. : No signs and/or symptoms were reported regarding the genitourinary system. EENT: No deficits noted. No signs and/or symptoms were reported regarding the EENT system. Derm: No deficits noted. No signs and/or symptoms reported regarding the dermatologic system. Skin is intact, is healthy with good turgor, Skin is dry, Skin is normal, Skin temperature is warm. Musculoskeletal: No deficits noted. No signs and/or symptoms reported regarding the musculoskeletal system. Circulation, motion, and sensation intact. Range of motion: intact in all extremities. 20:51 Reassessment: Patient appears in no apparent distress at this time. No changes from lg3 previously documented assessment. Patient and/or family updated on plan of care and expected duration. Pain level reassessed. Patient is alert, oriented x 3, equal unlabored respirations, skin warm/dry/pink. Patient states feeling better. 21:05 Reassessment: Patient and/or family updated on plan of care and expected duration. Pain ha1 level reassessed. Patient is alert, oriented x 3, equal unlabored respirations, skin warm/dry/pink. Patient states feeling better. Patient states symptoms have improved. Vital Signs: 18:45 BP 135 / 84; Pulse 90; Resp 20; Temp 98.3; Pulse Ox 98% ; Weight 181.89 kg; Height 5 me1 ft. 11 in. ; Pain 6/10; 19:43 BP 153 / 82; Pulse 85; Resp 16 S; Pulse Ox 98% on R/A; lg3 21:05 BP 145 / 79; Pulse 75; Resp 18 S; Pulse Ox 99% on R/A; ha1 18:45 Body Mass Index 55.93 (181.89 kg, 180.34 cm) me1 18:45 Pain Scale: [facility] [place] ED Course: 18:26 Patient arrived in ED. cj3 18:27 Hans Monge PA-C is PHCP. cp 18:27 Gage Turner MD is Attending Physician. cp 18:47 Triage completed. me1 18:47 Arm band placed on Patient placed in an exam room. me1 19:43 Catrachita Isaac, DAYA is Primary Nurse. lg3 19:43 Patient has correct armband on for positive identification. Placed in gown. Bed in low lg3 position. Call light in reach. Side rails up X 1. Client placed on continuous cardiac and pulse oximetry monitoring. NIBP monitoring applied. Door closed. Noise minimized. Warm blanket given. Pillow given. Family accompanied patient. 19:43 Initial lab(s) drawn, by va, sent to lab. Urine collected: clean catch specimen, clear. lg3 Inserted saline lock: 22 gauge in left forearm, using aseptic technique. Blood collected. Flushed with 10 mL NS. 20:04 Farrukh Wiggins MD is Attending Physician. cp 20:08 US Abdomen Limited: gallbladder In Process Unspecified. EDMS 20:25 CT Abd/Pelvis - IV Contrast Only In Process Unspecified. EDMS 21:05 No provider procedures requiring assistance completed. IV discontinued, intact, ha1 bleeding controlled, No redness/swelling at site. Pressure dressing applied. 21:07 Provided Education on: medication administration . ha1 Administered Medications: 18:48 CANCELLED (Physician Discretion): tuklrehulbhgihc51.5 mg IVP once cp 18:48 CANCELLED (Physician Discretion): morphineor iv 4 mg IVP once over 4 mins cp 19:53 Drug: NS 0.9% IV 1000 ml IV at 1 bolus Per protocol; to be given as a bolus over 60 lg3 minutes Route: IV; Rate: 1 bolus; Site: left forearm; 21:00 Follow up: Response: No adverse reaction; IV Status: Completed infusion ha1 19:53 Drug: metoCLOPramide IVP 10 mg IVP once; over 1 to 2 minutes Route: IVP; Site: left lg3 forearm; 20:20 Follow up: Response: No adverse reaction; Marked relief of symptoms ha1 19:53 Drug: diphenhydrAMINE IVP 25 mg IVP once Route: IVP; Site: left forearm; lg3 20:20 Follow up: Response: No adverse reaction; Marked relief of symptoms ha1 19:54 Drug: Dicyclomine IM 20 mg IM once Route: IM; Site: left deltoid; lg3 20:00 Follow up: Response: No adverse reaction; Marked relief of symptoms ha1 Medication: 19:43 VIS not applicable for this client. lg3 Outcome: 20:52 Discharge ordered by . amber 21:06 Discharged to home ambulatory, with family, 1 21:06 Condition: stable 21:06 Discharge instructions given to patient, Instructed on discharge instructions, follow up and referral plans. medication usage, Demonstrated understanding of instructions, follow-up care, medications, Prescriptions given X 2, 21:08 Patient left the ED. ha1 Signatures: Dispatcher [employer] EDMS Hans Monge, PA-C PA-C Catrachita Allen RN RN lg3 Apolonia Rivas RN RN [address] RN RN va1 Lauryn Nava 3
--- NOTE | 2025-07-30 20:53 | EDPHYS ---
Physician Documentation [facility] Name: Echo Ratliff Age: 25 yrs Sex: Female : 2000 Arrival Date: 07/30/2025 Time: 18:14 Bed 6 Private MD: ED Physician Farrukh Wiggins HPI: 07/30 18:55 This 25 yrs old Female presents to ER via Ambulatory with complaints of Abdominal Pain, cp Nausea/Vomiting/Diarrhea, Decreased Appetite. 18:55 The patient presents with abdominal pain in the right upper quadrant. cp 18:55 Onset: The symptoms/episode began/occurred 4 day(s) ago. The symptoms radiate to right cp back. Associated signs and symptoms: Pertinent positives: nausea and vomiting, Pertinent negatives: chest pain, constipation, diarrhea, dysuria, fever, active vomiting. The symptoms are described as waxing/waning. Modifying factors: the symptoms are aggravated by food. Severity of pain: in the emergency department the pain is unchanged despite home interventions. Historical: - Allergies: 18:47 lavender; me1 - PMHx: 18:47 Hypertension; Hypothyroidism; Ovarian cysts; PCOS; me1 - PSHx: 18:47 None; me1 - Immunization history:: Adult Immunizations up to date. - Infectious Disease History:: Denies. - Social history:: Smoking status: Reported history of juuling and/or vaping. ROS: 19:00 Constitutional: Negative for body aches, chills, fever, poor PO intake, cp 19:00 Eyes: Negative for injury, pain, redness, and discharge, cp 19:00 ENT: Negative for drainage from ear(s), ear pain, sore throat, difficulty swallowing, difficulty handling secretions, 19:00 Cardiovascular: Negative for chest pain, edema, palpitations, 19:00 Respiratory: Negative for cough, shortness of breath, wheezing, 19:00 Abdomen/GI: Positive for abdominal pain, nausea, vomiting, of the right upper quadrant, Negative for diarrhea, constipation, anorexia, hematemesis, 19:00 Back: Positive for radiated pain, 19:00 : Negative for urinary symptoms, 19:00 Neuro: Negative for altered mental status, dizziness, headache, syncope, weakness, 19:00 All other systems are negative, Exam: 19:05 Head/Face: Normocephalic, atraumatic. cp 19:05 Constitutional: The patient appears in no acute distress, alert, awake, non-diaphoretic, non-toxic, well developed, well nourished, morbid obesity 19:05 Eyes: Periorbital structures: appear normal, Conjunctiva: normal, no exudate, no injection, Sclera: no appreciated abnormality, Lids and lashes: appear normal, bilaterally, 19:05 ENT: External ear(s): are unremarkable, Nose: is normal, Mouth: Lips: moist, Oral mucosa: moist, Posterior pharynx: Airway: no evidence of obstruction, patent, 19:05 Chest/axilla: Inspection: normal, 19:05 Cardiovascular: Rate: normal, Rhythm: regular, 19:05 Respiratory: the patient does not display signs of respiratory distress, Respirations: normal, no use of accessory muscles, no retractions, labored breathing, is not present, Breath sounds: are clear throughout, no decreased breath sounds, no stridor, no wheezing, 19:05 Abdomen/GI: Inspection: obese Bowel sounds: active, all quadrants, Palpation: soft, in all quadrants, moderate abdominal tenderness, in the epigastric area and right upper quadrant, rebound tenderness, is not appreciated, involuntary guarding, is not appreciated, 19:05 Back: CVA tenderness, that is mild, is noted on the right, 19:05 Skin: cellulitis, is not appreciated, no rash present. 19:05 Neuro: Orientation: to person, place \T\ time. Mentation: is normal, Cerebellar function: is grossly normal, Motor: moves all fours, strength is normal, Sensation: is normal, Vital Signs: 18:45 BP 135 / 84; Pulse 90; Resp 20; Temp 98.3; Pulse Ox 98% ; Weight 181.89 kg; Height 5 me1 ft. 11 in. ; Pain 6/10; 19:43 BP 153 / 82; Pulse 85; Resp 16 S; Pulse Ox 98% on R/A; lg3 21:05 BP 145 / 79; Pulse 75; Resp 18 S; Pulse Ox 99% on R/A; ha1 18:45 Body Mass Index 55.93 (181.89 kg, 180.34 cm) me1 18:45 Pain Scale: Adult me1 MDM: 18:41 Medical Screening Exam initiated cp 19:00 Differential diagnosis: appendicitis, bowel obstruction, cholecystitis, Cholelithiasis, cp Ectopic , gastritis, non-specific abd pain, pancreatitis, Peptic Ulcer Disease, Perf. Duodenal Ulcer, Perf. Gastric Ulcer, Pyelonephritis, Ureterolithiasis, urinary tract infection. 20:50 Data reviewed: vital signs, nurses notes, lab test result(s), radiologic studies, CT cp scan, ultrasound. ED course: Vital signs stable. Pain improved. Discussed results of today's radiology studies to include the ultrasound of the gallbladder that was negative for any stones or sludge and/or wall thickening. CT results of the abdomen pelvis show a 10 x 7 x 9.8 cm cyst anterior to the uterus. We discussed these results and patient reports she is aware of a cyst on her ovary that she is in the process of following up with gynecology. She reports last time it was evaluated it was approximately 13 cm. She declines a pelvic ultrasound at this time. Will discharge to home for continued monitoring. 20:51 I considered the following discharge prescriptions or medication management in the emergency department Medications were administered in the Emergency Department. See MAR. 20:51 Care significantly affected by the following chronic conditions: Hypertension, Obesity. Counseling: I had a detailed discussion with the patient and/or guardian regarding the historical points, exam findings, and any diagnostic results supporting the discharge/admit diagnosis, lab results, radiology results, the need for outpatient follow up, for definitive care, an OB/Gyne specialist, to return to the emergency department if symptoms worsen or persist or if there are any questions or concerns that arise at home. Response to treatment: the patient's symptoms have mildly improved after treatment, and as a result, I will discharge patient. 07/30 18:48 Order name: CBC with Diff; Complete Time: 20:01 07/30 20:02 Interpretation: Normal except: WBC 11.10; RBC 5.37; MCV 71.9; MCH 23.3; RDW 15.6. 07/30 18:48 Order name: CMP; Complete Time: 20:44 07/30 20:44 Interpretation: Normal except: CL 108; ALB 3.1; GLOB 4.5; A/G 0.7. 07/30 18:48 Order name: Lipase; Complete Time: 20:44 07/30 20:45 Interpretation: Reviewed. 07/30 18:48 Order name: Test, Urine; Complete Time: 20:01 cp 07/30 20:04 Order name: UA Rfx Yury Cult if indicated; Complete Time: 20:44 cp 07/30 20:44 Interpretation: Normal except: [facility] Extremely Turbid; UBLD 3+ (OVER); UPROT TRACE; cp UESTR 75; UWBC 10-20; URBC 21-50. 07/30 20:40 Order name: Urine Culture EDMS 07/30 18:49 Order name: US Abdomen Limited: gallbladder; Complete Time: 20:44 cp 07/30 20:44 Interpretation: Report reviewed. cp 07/30 20:03 Order name: CT Abd/Pelvis - IV Contrast Only; Complete Time: 20:44 cp 07/30 20:45 Interpretation: Report reviewed. cp 07/30 18:48 Order name: IV Saline Lock; Complete Time: 19:47 cp 07/30 18:48 Order name: Labs collected and sent; Complete Time: 19:47 cp 07/30 18:48 Order name: NPO; Complete Time: 19:47 cp Administered Medications: 18:48 CANCELLED (Physician Discretion): otlpxceevudwdje02.5 mg IVP once cp 18:48 CANCELLED (Physician Discretion): morphineor iv 4 mg IVP once over 4 mins cp 19:53 Drug: NS 0.9% IV 1000 ml IV at 1 bolus Per protocol; to be given as a bolus over 60 lg3 minutes Route: IV; Rate: 1 bolus; Site: left forearm; 21:00 Follow up: Response: No adverse reaction; IV Status: Completed infusion ha1 19:53 Drug: metoCLOPramide IVP 10 mg IVP once; over 1 to 2 minutes Route: IVP; Site: left lg3 forearm; 20:20 Follow up: Response: No adverse reaction; Marked relief of symptoms ha1 19:53 Drug: diphenhydrAMINE IVP 25 mg IVP once Route: IVP; Site: left forearm; lg3 20:20 Follow up: Response: No adverse reaction; Marked relief of symptoms ha1 19:54 Drug: Dicyclomine IM 20 mg IM once Route: IM; Site: left deltoid; lg3 20:00 Follow up: Response: No adverse reaction; Marked relief of symptoms ha1 Disposition Summary: 07/30/25 20:52 Discharge Ordered Notes: Location: Home cp Problem: new cp Symptoms: have improved cp Condition: Stable cp Diagnosis - Upper abdominal pain, unspecified cp - Other and unspecified ovarian cysts cp Followup: cp - With: Private Physician - When: 2 - 3 days - Reason: Recheck today's complaints Discharge Instructions: - Discharge Summary Sheet cp - Abdominal Pain, Adult cp - Ovarian Cyst cp - Gallbladder Nuclear Scan cp Forms: - Medication Reconciliation Form cp - Antibiotic Education cp - Prescription Opioid Use cp - Patient Portal Instructions cp - Leadership Thank You Letter cp Prescriptions: - dicyclomine 20 mg Oral tablet - take 1 tablet ORAL route every 6-8 hours; 30 tablet; Refills: 0, Product cp Selection Permitted - ondansetron 8 mg Oral Tablet,disintegrating - take 1 tablet ORAL route every 12 hours; 15 tablet; Refills: 0, Product cp Selection Permitted Signatures: Dispatcher [employer] EDHI Hans Monge PA-C PA-C cp Able, Lacie, RN RN lg3 Franny St RN RN me1 Apolonia Rivas RN ha1 Corrections: (The following items were deleted from the chart) 18:48 18:48 diphenhydrAMINE IVP 12.5 mg IVP once ordered. cp cp 18:48 18:48 morphine IVP or IV 4 mg IVP once over 4 mins ordered. cp cp 18:48 18:48 Abdomen Limited+[id number].[email or web address].BRZ ordered. [facility] EDMS 07/31 18:03 17:59 Constitutional: The patient appears in no acute distress, alert, awake, cp non-diaphoretic, non-toxic, well developed, well nourished, morbid obesity cp 18:03 17:59 Head/Face: Normocephalic, atraumatic. cp cp 18:03 17:59 Eyes: Periorbital structures: appear normal, Conjunctiva: normal, no exudate, no cp injection, Sclera: no appreciated abnormality, Lids and lashes: appear normal, bilaterally, cp 18:03 17:59 ENT: External ear(s): are unremarkable, Nose: is normal, Mouth: Lips: moist, Oral cp mucosa: moist, Posterior pharynx: Airway: no evidence of obstruction, patent, cp 18:03 17:59 Chest/axilla: Inspection: normal, cp cp 18:03 17:59 Cardiovascular: Rate: normal, Rhythm: regular, cp cp 18:03 17:59 Respiratory: the patient does not display signs of respiratory distress, cp Respirations: normal, no use of accessory muscles, no retractions, labored breathing, is not present, Breath sounds: are clear throughout, no decreased breath sounds, no stridor, no wheezing, cp 18:03 17:59 Abdomen/GI: Inspection: obese Bowel sounds: active, all quadrants, Palpation: cp soft, in all quadrants, moderate abdominal tenderness, in the epigastric area and right upper quadrant, rebound tenderness, is not appreciated, involuntary guarding, is not appreciated, cp 18:03 17:59 Back: CVA tenderness, that is mild, is noted on the right, cp cp 18: 17:59 Skin: cellulitis, is not appreciated, no rash present. cp cp 18:03 17:59 Neuro: Orientation: to person, place \T\ time. Mentation: is normal, Cerebellar cp function: is grossly normal, Motor: moves all fours, strength is normal, Sensation: is normal, cp
[2025-07-30 21:14] VITALS: TEMP 98.3
[2025-07-30 21:17] VITALS: BP 145/79; O2SAT 99
== END 2025-07-30 21:08 | disposition home or self-care (01) ==
LOC: ER 18:14
DX: N83.299 Other ovarian cyst, unspecified side (principal)
CPT/HCPCS: 96361; 87088; 85025; 81001; 87086; 36415; 81025; 83690; 80053; 74177; 76705; 96375; 96372; 96374; 99284; Q9967; J2765; J0500; J1200; J7030